=== PATIENT | male | born 1955 | race Caucasian/White ===

== ENCOUNTER → 2024-10-21 15:24 | Outpatient (BNVA) | payer MEDICARE, SELFPAY | PROVIDERS: PCP Family Medicine; Visit Provider Family Medicine | DX: I10 Essential (primary) hypertension (principal); M51.9 Unspecified thoracic, thoracolumbar and lumbosacral intervertebral disc disorder; E78.5 Hyperlipidemia, unspecified; Z85.118 Personal history of other malignant neoplasm of bronchus and lung | CPT/HCPCS: 80053; 80061; 85025 ==

== ENCOUNTER 2024-10-27 08:15 | Outpatient (CLI) | payer MEDICARE, BC, SELFPAY ==
--- NOTE | 2024-10-27 08:45 | MR_ITS ---
WS: [id number] MRI LUMBAR SPINE NONCONTRAST TECHNIQUE: Sagittal T1, T2 and STIR imaging. Axial T1 and T2 imaging. CLINICAL INFORMATION: chronic back pain COMPARISON: None. FINDINGS: Anterolisthesis C3 on C4 on the cervical spine jump roll operator imaging measuring approximately 3.1 mm. Moderate central canal stenosis with slight indentation cervical cord and probably chronic myelomalacia. Juan mmend further evaluation with cervical spine MRI. Grade 1 anterolisthesis C7 on T1. No prior cervical spine imaging at [facility]. Chronic biconcave compression at L1 with loss of approximately 50% vertebral body height centrally. M ild to moderate central canal stenosis T11-T12 with small central disc protrusion and slight indentat ion on the distal thoracic cord. Anterolisthesis L5 on S1 measuring 8 mm.. L1-L2: Mild disc bulging. Mild facet arthropathy. Small LEFT foraminal protrusion with mild LEFT and no significant RIGHT foraminal narrowing. L2-L3: Mild disc bulge with mild central canal stenosis. Mild facet arthropathy. Mild LEFT foraminal narrowing. L3-L4: Shallow central disc protrusion. Moderate central canal stenosis. Moderate facet arthropathy w ith ligamentum flavum hypertrophy. Bilateral foraminal protrusions with moderate foraminal narrowing. L4-L5: Moderate central canal stenosis with mild disc bulging and facet arthropathy ligamentum flavum hypertrophy. Mild to moderate LEFT greater than RIGHT foraminal narrowing. L5-S1: Grade 1-2 anterolisthesis. Mild central canal stenosis. Slight impingement of traversing S1 ne rve roots. Moderate to advanced facet arthropathy with ligamentum flavum hypertrophy. Severe bilatera l foraminal narrowing. Impingement on the exiting L5 nerve roots. Small RIGHT renal cysts MR/MR lumbar spine wo con* [id number] IMPRESSION: 1. Moderate central canal stenosis in the cervical spine on the jump roll operator imaging at C3-4 with grade 1 anterolisthesis. Recommend further evaluation with cervica l spine MRI. Slight indentation of the cervical cord with myelomalacia. 8 mm an terolisthesis L5 on S1 with severe bilateral foraminal narrowing. 2. Chronic biconcave compression L1 vertebral body with loss of approximately 50% vertebral body height. 3. Moderate central canal stenosis L3-L4 and L4-L5. 4. Small central protrusion T11-T12 with mild to moderate central canal stenos is. 5. Mild to moderate foraminal narrowing worse at bilateral L3-4 and bilateral L4-5.
== END 2024-10-27 08:16 | disposition home or self-care (01) ==
LOC: RAD 08:18
PROVIDERS: PCP Family Medicine; Visit Provider Family Medicine
DX: M51.9 Unspecified thoracic, thoracolumbar and lumbosacral intervertebral disc disorder (principal); M48.02 Spinal stenosis, cervical region; M48.07 Spinal stenosis, lumbosacral region; M48.061 Spinal stenosis, lumbar region without neurogenic claudication; M48.04 Spinal stenosis, thoracic region; M43.13 Spondylolisthesis, cervicothoracic region; M43.12 Spondylolisthesis, cervical region; M43.17 Spondylolisthesis, lumbosacral region; R93.89 Abnormal findings on diagnostic imaging of other specified body structures; M51.369 Other intervertebral disc degeneration, lumbar region without mention of lumbar back pain or lower extremity pain; M47.816 Spondylosis without myelopathy or radiculopathy, lumbar region; M47.817 Spondylosis without myelopathy or radiculopathy, lumbosacral region; N28.1 Cyst of kidney, acquired; M51.24 Other intervertebral disc displacement, thoracic region
CPT/HCPCS: 72148

== ENCOUNTER 2024-11-11 08:27 | Outpatient (CLI) | payer MEDICARE, BC, SELFPAY ==
--- NOTE | 2024-11-11 08:33 | CTR_ITS ---
PROCEDURE INFORMATION: Exam: CT Chest Without Contrast; Diagnostic Exam date and time: 11/11/2024 8:32 AM Age: 69 years old Clinical indication: Abnormal findings; Abnormal radiologic exam of lung or chest; Prior surgery; Surgery date: 6+ months; Surgery type: RT lung; Patient HX: HX of lung cancer; Additional info: Lung nodule. TECHNIQUE: Imaging protocol: Diagnostic computed tomography of the chest without contrast. Sagittal and coronal reformatted images were also reviewed. Interpretation is based on receipt of 227 images. Radiation optimization: All CT scans at this facility use at least one of these dose optimization techniques: automated exposure control; mA and/or kV adjustment per patient size (includes targeted exams where dose is matched to clinical indication); or iterative reconstruction. COMPARISON: No relevant prior studies available. RADIATION DOSE METRICS: Total DLP (mGy-cm): 329.87 FINDINGS: Limitations: Evaluation of the mediastinum and vasculature is limited without intravenous contrast. Trachea: Tracheobronchial structures are patent. Lungs: The patient has had a previous right upper lobectomy. Ill-defined soft tissue density in the right perihilar region with marked narrowing of the right middle lobe bronchus and complete obstruction of the right lower lobe bronchus prior to its branches (series 3, images 36-41 and series 6, images 30-36). This measures approximately 6.5 x 2.4 cm (series 3, image 37). Dense opacification in the right lower lobe may be due to postobstructive atelectasis/pneumonia. However, there are also cylindrical bronchiectatic changes in this region and the density could be due at least in part to post radiation changes. Reticulonodular interstitial thickening surrounding the more dense area of opacification could represent an atypical pneumonia versus lymphangitic spread of tumor. The left lung is clear. Pleural spaces: Small right pleural effusion. No pneumothorax. Heart: Mild enlargement of the heart. Coronary arteries: Extensive atherosclerotic calcification in the coronary arteries. Esophagus: The esophagus is unremarkable. Mediastinal space: No mediastinal hematoma. No pneumomediastinum. Lymph nodes: Multiple enlarged mediastinal lymph nodes. The largest measures 1.3 cm in short axis (series 3, image 26). Vasculature: Moderate atherosclerotic changes in the visualized arteries. No evidence for aortic aneurysm. Pulmonary arteries are unremarkable. Pulmonary veins are unremarkable. Liver: The visualized liver is unremarkable. Gallbladder and biliary ducts: The visualized gallbladder is unremarkable. Pancreas: The visualized pancreas is unremarkable. No pancreatic ductal dilatation. Spleen: The spleen is unremarkable. Adrenal glands: The right and left adrenal glands are unremarkable. Kidneys: Small cysts in the visualized right kidney, the larger measures 1.6 cm. The visualized left kidney is unremarkable. Bones/joints: Old, severe compression deformity of L1. Degenerative changes in the spine and shoulders. No lytic or sclerotic bony lesions. Soft tissues: No acute abnormality in the extrathoracic soft tissues. CT/CT chest wo con [id number] IMPRESSION: 1. Ill-defined soft tissue density in the right perihilar region with marked narrowing of the right middle lobe bronchus and complete obstruction of the right lower lobe bronchus prior to its branches. This measures approximately 6.5 x 2.4 cm. Dense opacification in the right lower lobe may be due to postobstructive atelectasis/pneumonia. However, there are also cylindrical bronchiectatic changes in this region and the density could be due at least in part to post radiation changes. 2. Reticulonodular interstitial thickening surrounding the more dense area of opacification could represent an atypical pneumonia versus lymphangitic spread of tumor. 3. Small right pleural effusion. 4. Old, severe compression deformity of L1. 5. Mediastinal lymphadenopathy, possible metastatic foci cannot be ruled out. 6. The patient has had a previous right upper lobectomy. 7. Incidental/nonacute findings are listed in the report.
== END 2024-11-11 08:28 | disposition home or self-care (01) ==
LOC: RAD 08:27
PROVIDERS: PCP Family Medicine; Visit Provider Family Medicine
DX: M54.2 Cervicalgia (principal); M54.6 Pain in thoracic spine; M54.50 Low back pain, unspecified; Z85.118 Personal history of other malignant neoplasm of bronchus and lung; M48.02 Spinal stenosis, cervical region; M47.896 Other spondylosis, lumbar region; M51.9 Unspecified thoracic, thoracolumbar and lumbosacral intervertebral disc disorder
CPT/HCPCS: 71250; 72050; 72072; 72110; 85025; 99204

== ENCOUNTER 2024-11-14 09:56 | Outpatient (CLI) | payer MEDICARE, BC, SELFPAY ==
--- NOTE | 2024-11-14 10:15 | MR_ITS ---
WS: [id number] MRI CERVICAL SPINE NONCONTRAST TECHNIQUE: Sagittal T1, T2 and STIR imaging. Axial T2, gradient, and fiesta imaging. CLINICAL INFORMATION: Neck Pain COMPARISON: None. FINDINGS: Straightening of the normal cervical lordosis. Grade 1 anterolisthesis C3 on C4 and C7 on T1. Chronic myelomalacia in the cervical cord at the C3 level with severe central canal stenosis. Spinal canal a t this level measures approximately 3.8 mm in maximum dimension. C2-C3: Mild facet arthropathy. Spinal canal and foramen are patent. C3-C4: Grade 1 anterolisthesis. Mild disc bulging with severe central canal stenosis. Impingement wit h flattening of the cervical cord. Myelomalacia in the cervical cord. Severe LEFT and moderate to sev ere RIGHT bony foraminal narrowing. Advanced LEFT facet arthropathy. C4-C5: Slight retrolisthesis. Disc osteophyte complex with moderate to severe facet arthropathy. Conchita re LEFT and mild RIGHT bony foraminal narrowing. Uncovertebral joint hypertrophy. Mild central canal stenosis. C5-C6: Disc osteophyte complex with endplate ridging. Severe RIGHT and mild LEFT bony foraminal narro wing. Moderate to advanced facet arthropathy. C6-C7: Disc osteophyte complex with moderate central canal stenosis and slight contact of the cervica l cord. Moderate to severe LEFT greater than RIGHT bony foraminal narrowing. Moderate facet arthropat hy. C7-T1: Grade 1 anterolisthesis. Mild disc bulging with mild central canal stenosis. Severe LEFT and m ild RIGHT bony foraminal narrowing. Moderate facet arthropathy. Visualized brain stem structures: Normal. Prevertebral soft tissues: Normal. Small vessel changes in the paul. MR/MR cervical spin wo con* [id number] IMPRESSION: 1. Straightening of the normal cervical lordosis. Grade 1 anterolisthesis C3 o n C4 and C7 on T1. 2. Severe central canal stenosis C3-C4 with indentation and flattening of the cervical cord. Chronic myelomalacia in the cervical cord at this level. 3. Mild central canal stenosis C4-5 and C5-6. Moderate central canal stenosis C6-7. 4. Multilevel moderate to severe bony foraminal narrowing worse at LEFT C3-4, LEFT C4-5, RIGHT C5-6, LEFT C6-7, and LEFT C7-T1.
== END 2024-11-14 09:57 | disposition home or self-care (01) ==
LOC: RAD 09:57
PROVIDERS: PCP Family Medicine; Visit Provider Orthopaedic Surgery
DX: M43.12 Spondylolisthesis, cervical region (principal); M43.13 Spondylolisthesis, cervicothoracic region; M48.02 Spinal stenosis, cervical region; G95.89 Other specified diseases of spinal cord; M48.03 Spinal stenosis, cervicothoracic region; M47.892 Other spondylosis, cervical region; M50.31 Other cervical disc degeneration, high cervical region; M25.78 Osteophyte, vertebrae; R93.89 Abnormal findings on diagnostic imaging of other specified body structures; M50.33 Other cervical disc degeneration, cervicothoracic region; M47.893 Other spondylosis, cervicothoracic region
CPT/HCPCS: 72141

== ENCOUNTER → 2024-11-27 10:16 | Outpatient (BNVA) | payer MEDICARE, BC, SELFPAY | PROVIDERS: PCP Family Medicine; Visit Provider Orthopaedic Surgery | DX: M47.12 Other spondylosis with myelopathy, cervical region (principal) | CPT/HCPCS: 36415; 80053; 81001; 85025; 99214 ==

== ENCOUNTER → 2024-12-12 12:04 | Outpatient (BNVA) | payer MEDICARE, BC, SELFPAY | PROVIDERS: PCP Family Medicine; Visit Provider Family Medicine | DX: Z01.818 Encounter for other preprocedural examination (principal) | CPT/HCPCS: 93005 ==

== ENCOUNTER 2024-12-31 13:05 | Observation (INO) | payer MEDICARE, BC, SELFPAY ==
[2024-12-31] VITALS (20 sets, daily range): BP systolic 85–151; BP diastolic 50–85; PULSE 63–94; RESP 14–20; TEMP 36–36.8; O2SAT 91–99; BMI 24.3; BMI 24.4
--- NOTE | 2024-12-31 | XR_ITS ---
WS: [id number] Cervical spine, C-arm fluoroscopy views, 12/31/2024 Clinical Data: OR PICS Comparison: Cervical spine, 11/11/2024 Findings: Dr. Montengero performed an anterior cervical disc fusion. XR/XR cervical spine 3V* [id number] Impression: Anterior cervical disc fusion.
[2024-12-31] MEDS: sodium chloride 0.9% 1,000 ML 30 ML IV (08:36)
[2024-12-31] MEDS: albuterol 2.5 mg/3 mL Neb INHALATION (08:55)
--- NOTE | 2024-12-31 08:57 | P.HP_ITS ---
Same Day Surgery H&P Indication for Procedure/HPI DATE OF PROCEDURE: December 31, 2024 CHIEF COMPLAINT/INDICATIONFOR SURGICAL PROCEDURE: Neck pain and balance issues PREOP DIAGNOSIS: Cervical stenosis with myelopathy PLANNED PROCEDURE: Operation Date: 12/31/24 09:25 Proposed Procedures p Anterior Cervical Discectomy & Fusion ACDF w/ Anterior Interbody Fusion w/ Cage w/ Instrumentation w/ Allograft w/ Navigation(Not Applicable) - Soto Montenegro DO Medications/Allergies* Home Medications ?Medication ?Instructions ?Recorded ?Confirmed ?Type aspirin 81 mg tablet,delayed 81 mg PO DAILY 10/21/24 0 12/30/24 History release (Adult Aspirin Regimen) Allergies/Adverse Reactions Allergy/AdvReac Type Severity Reaction Status Date / Time No Known Allergies Allergy Verified 12/12/24 12:18 Current Medications: Generic Name Dose Route Start Last Admin Trade Name Freq PRN Reason Stop Dose Admin Sodium Chloride 1,000 mls @ 30 mls/hr 12/31/24 07:45 12/31/24 08:36 Sodium Chloride 0.9% IV 01/01/25 07:44 30 mls/hr .Q24H HALIE Administration Pertinent History/Comorbid Conditions* Medical History (Updated 11/11/24 @ 15:40 by Soto Montenegro DO) Hx of cancer of lung Hypertension Hyperlipidemia Lumbar disc disease Social History Smoking and tobacco/nicotine status: current every day tobacco/nicotine user Pertinent Exam Findings alert, oriented x 3 and procedure specific exam findings Recommendations Surgery/Procedure today Coding Level of Care Code Acute Code for Chg Fwd
--- NOTE | 2024-12-31 08:57 | ANES.PREANE2 ---
Pre-Anesthetic Assessment Height/Weight: Height 1.75 m Weight 74.843 kg Temp Pulse Resp BP Pulse Ox O2 Del Method 97.1 F L 68 18 100/57 97 Room Air 12/31/24 07:56 12/31/24 07:56 12/31/24 07:56 12/31/24 07:56 12/31/24 07:56 12/31/24 08:37 Preop Diagnosis: Cervical stenosis with myelopathy Operation Date: 12/31/24 09:25 Proposed Procedures p Anterior Cervical Discectomy & Fusion ACDF w/ Anterior Interbody Fusion w/ Cage w/ Instrumentation w/ Allograft w/ Navigation(Not Applicable) - Soto Montenegro, DO Familial anesthetic complications: None Was Beta Payam taken within 24 hours: N/A Was Clonidine taken within 24 hours: N/A Last intake: Intake Last Liquid Date 12/30/24 Last Liquid Time 21:00 Last Solid Date 12/30/24 Last Solid Time 18:00 Social Tobacco and No alcohol Exam alert, oriented x 3, clear to auscultation bilaterally and regular rate & rhythm Airway Mallampati: Class II Dentition: other (no teeth) CV/HEM Hypertension Anesthetic Plan ASA status: 2 Anesthesia: General Risk of > 500 ml blood loss (7ml/kg in children): No Medications/Allergies Home Medications ?Medication ?Instructions ?Recorded ?Confirmed ?Last Taken ?Type aspirin 81 mg tablet,delayed 81 mg PO DAILY 10/21/24 12/30/24 12/29/24 History release (Adult Aspirin Regimen) carvedilol 3.125 mg tablet 3.125 mg PO DAILY #90 tabs 10/21/24 12/30/24 12/29/24 Rx lisinopril 40 mg tablet 40 mg PO DAILY #90 tabs 10/21/24 12/30/24 12/29/24 Rx rosuvastatin 5 mg tablet 5 mg PO DAILY #90 tabs 10/21/24 12/30/24 12/29/24 Rx Bone Growth Stimulator #1 ea 12/16/24 Unknown Rx Allergies Allergy/AdvReac Type Severity Reaction Status Date / Time No Known Allergies Allergy Verified 12/12/24 12:18 Current Medications Generic Name Dose Route Start Last Admin Trade Name Freq PRN Reason Stop Dose Admin Sodium Chloride 1,000 mls @ 30 mls/hr 12/31/24 07:45 12/31/24 08:36 Sodium Chloride 0.9% IV 01/01/25 07:44 30 mls/hr .Q24H HALIE Administration PFSH Anesthesia Medical History Hx of cancer of lung Hypertension Hyperlipidemia Lumbar disc disease Social History Smoking and tobacco/nicotine status: current every day tobacco/nicotine user Data Anesthesia Cardiac Studies: No Data to Display
[2024-12-31] MEDS: ceFAZolin 2,000 mg SDV 2000 MG IVP ×2 (09:39→16:58)
[2024-12-31] MEDS: lidocaine-epi 1% 20 mL INJ 10 ML INJECTION (10:32)
--- NOTE | 2024-12-31 11:33 | PM.OP ---
Operative Report Date of procedure: December 31, 2024 Pre-op diagnosis: Cervical stenosis with myelopathy Post-op diagnosis: same Procedure done: 1. Anterior diskectomy C 3/4 2. Insertion of cage C 3/4 3. Instrumentation with anterior plate from C 3?4 4. Use of allograft Surgeon: Soto Montenegro DO Estimated blood loss (mL): 50 Procedure: 1. Anterior diskectomy C 3/4 2. Insertion of cage C 3/4 3. Instrumentation with anterior plate from C 3?4 4. Use of allograft The patient was taken to the operating room, where he underwent general endotracheal anesthesia without complications. He was then positioned supine on the operating table, and all areas of impingement were well padded. The arms were carefully padded and tucked at his sides. A roll was placed between the shoulder blades.. An x-ray was done to determine the appropriate level for the skin incision. The entire neck was then sterilely prepped and draped in the usual fashion. Neuromonitoring was attached prior to prepping. A transverse skin incision was made and carried down to the platysma muscle. This was then split in line with its fibers. Blunt dissection was carried down medial to the carotid sheath and lateral to the trachea and esophagus until the anterior cervical spine was visualized. A needle was placed into a disc and an x-ray was done to determine its location. The longus colli muscles were then elevated bilaterally with the electrocautery unit. Self-retaining retractors were placed deep to the longus colli muscle. Attention was brought to the C3/4 level that was confirmed on x-ray. A caspar pin was placed into the C3 vertebrae and the C4 vertebrae. The disk space was then distracted. The microscope was then brought in. A radical anterior discectomies were performed at C3/4. This included complete removal of the anterior annulus, nucleus, and posterior annulus. The posterior longitudinal ligament was removed as were the posterior osteophytes. Foraminotomies were then accomplished bilaterally. This was done using a high speed sal, kerrison rongeurs and curretes Once all of this was accomplished, the curved currette was used to check for any residual compression. The central canal was wide open as were the foramen. A high-speed bur was used to remove the cartilaginous endplates above and below the interspace. Bleeding cancellous bone was exposed. The disc space were measured and appropriate size cage were placed sterilely onto the field. Allograft graft was packed into the cages. The cage was then placed and there was good juxtaposition against the bleeding decorticated surfaces and good distraction of each interspace. The [place] pins were removed. Bone wax was used to prevent any bleeding from occurring at the pin sites. The appropriate size anterior cervical locking plate was chosen and bent into gentle lordosis. Two screws were then placed into each of the vertebral bodies at C3 and C4. There was excellent purchase. A final x-ray was done confirming good position of the hardware and Cages. The locking screws were then applied, also with excellent purchase. Following a final copious irrigation, there was good hemostasis and no dural leaks. The carotid pulse was strong. The wounds were then closed in layers using 2-0 Vicryl suture for the platysma muscle, 2-0 Vicryl suture for the subcutaneous tissue, and 4-0 monocryl suture in a subcuticular skin closure. Glue was placed followed by application of a sterile dressing. The drain was hooked to bulb suction. A soft collar was applied. The patient was then carefully returned to the supine position on his hospital bed where he was reversed and extubated and taken to the recovery room having tolerated the procedure well.
--- NOTE | 2024-12-31 13:14 | SUR.PHASEII ---
12:15 WARM BLANKETS APPLIED. TOLERATED PO FLUIDS WELL. ROM AND SENSATION IN ALL EXTREMITES. HEMOVAC PATENT.
--- NOTE | 2024-12-31 13:50 | ANE.PACU2 ---
Inpatient post-anesthesia follow up: Airway intact: Yes Vital signs: Temperature 97.7 F Pulse Rate 64 Respiratory Rate 13 Blood Pressure 135/68 Pulse Oximetry 95 Oxygen Delivery Me thod Room Air Oxygen Flow Rate 2 Fraction of Inspir ed Oxygen Hydration adequate: Yes Nausea and vomiting: No Pain level: 1 Mental status: Baseline
[2024-12-31] MEDS: lactated ringers 1,000 ML 90 ML IV (14:54)
[2024-12-31] MEDS: ketorolac 30 mg/mL INJ IVP (14:58)
[2024-12-31] MEDS: docusate sodium 100 mg Capsule PO (17:03)
[2024-12-31] MEDS: HYDROcodone-acetaminophen 5-325 mg Tablet PO (20:19)
[2025-01-01] MEDS: ceFAZolin 2,000 mg SDV 2000 MG IVP ×2 (00:11→08:05)
[2025-01-01] MEDS: lactated ringers 1,000 ML 90 ML IV (01:51)
[2025-01-01 04:18] VITALS: BP 135/68; PULSE 64; RESP 13; TEMP 36.5; O2SAT 95
--- NOTE | 2025-01-01 07:32 | P.DS_ITS ---
Discharge Providers Date of Admission: 12/31/24 13:05 Date of Discharge: January 01, 2025 Attending Provider at Admission: Soto Montenegro DO Attending Provider at Discharge: Soto Montenegro DO Primary Care Provider: Rhett Cuevas MD Reason for Visit Reason for Visit: M47.12 Physical Exam Narrative: Patient doing well sitting up no complaints this morning. 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 Discharge Data Studies Completed and Pending Pending at discharge Category Date Time Status C-arm Fluoroscopy [id number] Routine Exams 12/31/24 07:39 Taken Vitals Last Vital Signs Temp 97.7 F 01/01/25 04:18 Pulse 64 01/01/25 04:18 Resp 13 01/01/25 04:18 BP 135/68 01/01/25 04:18 Pulse Ox 95 01/01/25 04:18 O2 Del Method Room Air 01/01/25 04:18 O2 Flow Rate 2 12/31/24 20:15 Discharge Plan Discharge Patient Disposition: Home Condition: Stable Prescriptions: New hydrocodone-acetaminophen 5-325 mg tablet 1 - 2 tab PO .Q4-6H Qty: 40 0RF Continued carvedilol 3.125 mg tablet 3.125 mg PO DAILY Qty: 90 3RF lisinopril 40 mg tablet 40 mg PO DAILY Qty: 90 3RF rosuvastatin 5 mg tablet 5 mg PO DAILY Qty: 90 3RF Held aspirin [Adult Aspirin Regimen] 81 mg tablet,delayed release (DR/EC) 81 mg PO DAILY Hold Instructions: Resume on 01/03/25. Discharge Orders: Discharge Order (Routine); Ordered 01/01/25 Ordered By: Soto Montenegro Discharge Diet: Advance as tolerated Discharge Activity: Limit activity as instructed Patient Instructions: Acute Wound Care (DC), Opioid Safety, Post Anesthesia Care Activity Restrictions/Additional Instructions: Thank you for choosing [facility] for your care! The following is a list of instructions, from your provider, to follow upon your discharge to ensure you have the optimal recovery from your recent injury or surgery. Anterior Cervical Discectomy and Fusion: What to Expect at Home Your Recovery Follow-up care is a mora part of your treatment and safety. Be sure to make and go to all appointments, and call your doctor if you are having problems. If you do not already have a follow-up appointment made, call office in the next 1-3 days to make follow up appointment for 2 weeks at [phone]. It is also a good idea to know your test results and keep a list of the medicines you take. You can expect your neck to feel stiff or sore after surgery. This should improve in the weeks after surgery. But it may take 4 to 6 months for you to get better completely. You may have trouble sitting or standing in one position for very long and may need pain medicine in the weeks after your surgery. It may take 4 to 6 weeks to get back to your usual activities, but it may depend on what kind of surgery you had. Your throat will feel sore and it may be difficult to swallow for the first 3 days after your surgery. As long as you can get liquids down without difficulty, this should slowly improve, otherwise call our office or seek medical attention if it becomes increasingly difficult to get anything down including liquids. Avoid hot liquids for first 3-5 days. Soothing foods/liquids such as jello, pudding, and luke warm soups are recommended until swallowing improves. Staying elevated will also help, it's advised you keep propped up at while sleeping to help reduce the swelling. You may use an ice pack directly on your incision or around it on the front of your neck, using a cloth to protect your skin; and a heating pad to the back of your neck as needed. Do not use over the counter anti-inflammatory medications (Ibuprofen, Motrin, Aleve, Advil, etc) Taking these meds after having a fusion can delay fusion rates, we recommend you avoid them for the first 3 months after your surgery. Dr. Montenegro may advise you to work with a physical therapist to strengthen the muscles around your neck and back - this will be discussed at your follow - up appointments. The pain or numbness you were having in your arms before surgery should get better or go away completely. This care sheet gives you a general idea about how long it will take for you to recover. But each person recovers at a different pace. Follow the steps below to get better as quickly as possible. How can you care for yourself at home? Activity ? Rest when you feel tired. Getting enough sleep will help you recover. ? Try to walk each day. Start by walking a little more than you did the day before. Bit by bit, increase the amount you walk. Walking boosts blood flow and helps prevent pneumonia and constipation. Walking may also decrease your muscle soreness after surgery. ? No lifting anything that is more that 5 pounds. This may include heavy grocery bags and milk containers, a heavy briefcase or backpack, cat litter or dog food bags, a child, or a vacuum block cleaner. ? Avoid strenuous activities, such as bicycle riding, jogging, weightlifting, or aerobic exercise, until your doctor says it is okay. ? Do not drive until your follow-up visit after your surgery, or until your doctor says it isokay. ? Avoid taking long car trips for 2 to 4 weeks after surgery. Your neck may become tired and painful from sitting too long in one position. ? You will probably need to take 4 to 6 weeks off from work. It depends on the type of work you do and how you feel. ? You may have sex as soon as you feel able, but avoid positions that put stress on your neck or cause pain. Diet ? You can eat your normal diet. If your stomach is upset, try bland, low-fat foods like plain rice, broiled chicken, toast, and yogurt ? Drink plenty of fluids. If you have kidney, heart, or liver disease and have to limit fluids, talk with your doctor before you increase the amount of fluids you drink. ? You may notice that your bowel movements are not regular right after your surgery. This is common. Try to avoid constipation and straining with bowel movements. You may want to take a fiber supplement every day. If you have not had a bowel movement after a couple of days, ask your doctor about taking a mild laxative. Medicines ? Take pain medicines exactly as directed. 1. If Dr. Montenegro gave you a prescription medicine for pain, take lt as prescribed. 2. Do not take two or more pain medicines at the same time unless the doctor told you to. Many pain medicines have acetaminophen, which is Tylenol. Too much acetaminophen {Tylenol) can be harmful. 3. If you think your pain pill is making you sick to your stomach: 4. Take your pills after meals (unless your doctor has told you not to). 5. Ask your Dr. for a different pain pill. Incisioncare ? Remove your dressing 48hours after your surgery. Ok to shower and get the incision wet. Do not overtly wash your incision. When done, pad dry, leave open to air thereafter. Avoid creams and ointments directly on your incision. ? Your sutures in the incision will dissolve and fall out on their own. ? Keep the area clean and dry. You may cover it with a gauze bandage if it weeps or rubs against clothing; if you choose to do this, change the dressing everyday. Other instructions ? Use a heating pad, hot water bottle, or gentle massage on your back to reduce stiffness. Avoid putting heat on your incision When should you call for help? ? Call 911 anytime you think you may need emergency care. For example, call if: ? You pass out (lose consciousness). ? You have sudden chest pain and shortness of breath, or you cough upblood. ? You cannot swallow. ? You have severe pain in your neck or back. ? Call your Dr. or seek immediate medical care if: ? You have pain that does not get better after you take pain pills. ? You have loose stitches, or your incision comes open. ? You have blood or fluid draining from the incision. ? You have signs of infection, such as: 1. Increased pain, swelling, warmth, or redness. 2. Red streaks leading from the site. 3. Pus draining from the site. 4. Swollen lymph nodes in your neck or armpits. 5. A fever. ? You have severe pain in your arms. ? You have new or increased weakness or numbness in your arms. ? Watch closely for any changes in your health, and be sure to contact your doctor if: ? You do not have a bowel movement after taking a laxative. Discharge Attestations Time Spent in Discharge Care*: less than 30 min Quality Metrics Clinical Quality Measures [ No reported AMI, CVA or VTE this stay] Coding Level of Care Code Acute Code for Chg Fwd
[2025-01-01 07:40] VITALS: BP 130/72; PULSE 63; RESP 16; TEMP 36.4; O2SAT 92
[2025-01-01] MEDS: atorvastatin 40 mg Tablet 20 MG PO (08:15)
[2025-01-01] MEDS: docusate sodium 100 mg Capsule PO (08:16)
[2025-01-01] MEDS: carvedilol 3.125 mg Tablet PO (08:16)
[2025-01-01] MEDS: lisinopril 20 mg Tablet 40 MG PO (08:16)
[2025-01-01 10:05] VITALS: BP 130/72; PULSE 63; RESP 16; TEMP 36.4; O2SAT 92
== END 2025-01-01 09:59 | disposition home or self-care (01) ==
LOC: MEDSURG 13:05
PROVIDERS: Admitting Provider Orthopaedic Surgery; PCP Family Medicine; Visit Provider Orthopaedic Surgery
PROC: 0RB30ZZ Excision of Cervical Vertebral Disc, Open Approach (ICD-10-PCS; CPT 22551; principal; 2024-12-31 09:25)
DX: M48.02 Spinal stenosis, cervical region (principal); G99.2 Myelopathy in diseases classified elsewhere; E78.5 Hyperlipidemia, unspecified; I10 Essential (primary) hypertension; K08.109 Complete loss of teeth, unspecified cause, unspecified class; Z79.82 Long term (current) use of aspirin; F17.200 Nicotine dependence, unspecified, uncomplicated; Z85.118 Personal history of other malignant neoplasm of bronchus and lung; Z79.899 Other long term (current) drug therapy
CPT/HCPCS: 22551; 22853; 20930; 72040; 76000; 97110; 97161; C1713; C1763; C9359; G0378; J0690; J1100; J1885; J2250; J2405; J2704; J3010; J3490; J7030; J7120; J7613

== ENCOUNTER → 2025-01-20 14:43 | Outpatient (BNVA) | payer MEDICARE, BC, SELFPAY | PROVIDERS: PCP Family Medicine; Visit Provider Orthopaedic Surgery | DX: M48.02 Spinal stenosis, cervical region (principal) | CPT/HCPCS: 99024 ==

== ENCOUNTER → 2025-02-10 08:41 | Outpatient (BNVA) | payer MEDICARE, BC, SELFPAY | PROVIDERS: PCP Family Medicine; Visit Provider Orthopaedic Surgery | DX: M48.02 Spinal stenosis, cervical region (principal); M47.12 Other spondylosis with myelopathy, cervical region | CPT/HCPCS: 72040; 99024 ==

== ENCOUNTER → 2025-03-17 14:27 | Outpatient (BNVA) | payer MEDICARE, BC, SELFPAY | PROVIDERS: PCP Family Medicine; Visit Provider Orthopaedic Surgery | DX: M51.9 Unspecified thoracic, thoracolumbar and lumbosacral intervertebral disc disorder (principal); M47.12 Other spondylosis with myelopathy, cervical region | CPT/HCPCS: 72040; 99024 ==

== ENCOUNTER 2025-03-20 12:02 | Outpatient (CLI) | payer MEDICARE, BC, SELFPAY ==
--- NOTE | 2025-03-20 12:30 | PETR_ITS ---
PROCEDURE INFORMATION: Exam: PET/CT Skull Base to Mid-thigh Exam date and time: 03/20/2025 1:13 PM Age: 69 years old Clinical indication: Condition or disease; Primary cancer: Lung cancer; Condition/disease: New lung nodule; Prior surgery; Surgery date: 6+ months; Surgery type: RT lung; Additional info: Follow up on lung cancer - new mass LABS AND CLINICAL REPORTS: Glucose: 98 mg/dl Treatment strategy for malignancy (PET staging): Restaging (PS) TECHNIQUE: Imaging protocol: Following at least four-hour fasting and following the injection of radiopharmaceutical, low dose CT images were obtained. Then, PET images were obtained. Attenuation corrected images were constructed using the CT scan. Fused images of PET and CT were reviewed. The standardized uptake values (SUV) reported below are maximum values within a region of interest, expressed in gm/ml. Exam includes orbital meatal line to mid-thigh. SUV normalization method: BodyWeight Radiopharmaceutical: 10.6 mCi F-18 FDG (Fluorodeoxyglucose), IV. Time of imaging post radiopharmaceutical administration: 53 minutes Injection site: right ac COMPARISON: CT chest wo con [id number] 11/11/2024 8:32 AM FINDINGS: Brain: Visualized brain has normal physiologic uptake. Paranasal sinuses: Largely opacified left maxillary sinus with low-level FDG uptake. Pharynx: No abnormal uptake. Larynx: No abnormal uptake. Lungs, pleura and trachea: Prior right upper lobectomy changes. Heterogeneous right lower lobe consolidation and ground-glass opacification with FDG avid masslike perihilar area measuring approximately 4.5 x 3.0 cm on axial image 117 showing SUV max 18.3 and more peripheral masslike area measuring approximately 4.0 x 3.7 cm on axial image 125 showing SUV max 20.6. Mild right middle lobe ground-glass opacification with prominently very low-level FDG uptake, more avid (mild) focus showing SUV max 3.4 on axial image 121. Subcentimeter left upper lobe nodule on axial image 102 shows SUV max 7.9, accurate size measurement difficult given motion artifact. Mild ground-glass opacity at the left lung base with low-level FDG uptake is likely inflammatory. Small right pleural effusion. Heart: Normal physiologic uptake. Coronary arteries: Heavy coronary artery calcification. Mediastinal space: No abnormal uptake. Liver: No abnormal uptake. Gallbladder and biliary ducts: No abnormal uptake. Pancreas: No abnormal uptake. Spleen: No abnormal uptake. Adrenal glands: No abnormal uptake. Kidneys and ureters: Normal physiologic uptake. Stomach and bowel: No abnormal uptake. Reproductive: Bilateral vasectomy clips. Vasculature: No abnormal uptake. Heavy systemic atherosclerotic calcification without aortic aneurysm. Lymph nodes: FDG avid mediastinal and presumed right hilar lymphadenopathy with index right peribronchial node (medial to right bronchus) measuring 1.9 cm in the short axis on axial image 113 showing SUV max 10.7, previously measured 0.7 cm in the short axis. Skeleton: No abnormal uptake in the visualized axial and appendicular skeleton. Stable severe compression deformity of the L1 vertebral body. Mild chronic appearing compression deformity of the L3 vertebral body. Degenerative change along the axial skeletal system and both shoulders. Grade 2 degenerative anterolisthesis of L5 on S1. C3-C4 ACDF. Bilateral total hip arthroplasties. Soft tissues: No abnormal uptake in the visualized head, neck, chest, abdomen, pelvis, and extremities. METRICS: Mediastinal blood pool: SUV mean 1.6 Liver uptake: SUV mean 2.0 PET/PET skull to thigh SUBS [id number] IMPRESSION: 1. Heterogeneous right lower lobe consolidation and ground-glass opacification with FDG avid masslike perihilar area and more peripheral FDG avid masslike area suspicious for malignancy. 2. FDG avid mediastinal and presumed right hilar lymphadenopathy suspicious for metastatic disease. 3. Likely inflammatory ground-glass opacification at the right middle lobe, cannot entirely exclude malignancy at more focal area of mild FDG uptake. 4. FDG avid subcentimeter left upper lobe nodule raises concern for malignancy. 5. Small right pleural effusion. 6. Inflammatory left maxillary sinus disease. 7. Additional chronic and incidental findings as above.
== END 2025-03-20 12:03 | disposition home or self-care (01) ==
PROVIDERS: PCP Family Medicine; Visit Provider Family Medicine
DX: C34.00 Malignant neoplasm of unspecified main bronchus (principal); Z85.118 Personal history of other malignant neoplasm of bronchus and lung; R91.8 Other nonspecific abnormal finding of lung field; R59.0 Localized enlarged lymph nodes; J90 Pleural effusion, not elsewhere classified; J34.89 Other specified disorders of nose and nasal sinuses; Z98.890 Other specified postprocedural states; I25.10 Atherosclerotic heart disease of native coronary artery without angina pectoris; S32.010D Wedge compression fracture of first lumbar vertebra, subsequent encounter for fracture with routine healing; S32.030D Wedge compression fracture of third lumbar vertebra, subsequent encounter for fracture with routine healing; X58.XXXD Exposure to other specified factors, subsequent encounter; M47.9 Spondylosis, unspecified; M19.012 Primary osteoarthritis, left shoulder; M19.011 Primary osteoarthritis, right shoulder; M43.17 Spondylolisthesis, lumbosacral region; Z98.1 Arthrodesis status; Z96.643 Presence of artificial hip joint, bilateral
CPT/HCPCS: 78815; A9552

== ENCOUNTER 2025-03-23 13:17 | Outpatient (CLI) | payer MEDICARE, BC, SELFPAY ==
--- NOTE | 2025-03-23 13:45 | MR_ITS ---
WS: [id number] MRI THORACIC SPINE noncontrast HISTORY: thoracic pain COMPARISON: None available. TECHNIQUE: Multiplanar sequences are performed in sagittal and axial planes. On the sash assembler radiograph there is anterior cervical fusion at C3-4 with an interbody spacer. Additional facet joint arthropathy at C7 encroaching posteriorly. Mild anterior wedging of T12. No fracture or marrow edema within the thoracic spine. H shaped fracture at L1 without retropulsion. There is an ad ditional anterior compression fracture at L3 without retropulsion. Note is made of a small amount of marrow edema in the T12 spinous process. T1-2: Facet joint arthropathy. RIGHT foraminal nerve root sleeve diverticulum. T2-3: Small bilateral nerve root sleeve diverticula. Bilateral facet arthritis and foraminal narrowing. T3-4: Mild facet arthritis. T4-5: Moderate LEFT nerve root sleeve diverticulum. Mild facet arthritis. T5-6: Small central disc protrusion. Bilateral nerve root sleeve diverticula. T6-7: LEFT nerve root sleeve diverticulum. Mild facet arthritis. T7-8: Bilateral nerve root sleeve diverticulum. No stenosis. T8-9: Mild facet arthritis. T9-10: Mild bilateral facet arthritis and foraminal stenosis. T10-11: Diffuse annular disc bulging with moderate facet joint arthropathy. Mild bilateral foraminal stenosis. T11-12: Osteophytic ridging with disc bulging. Marked ligamentum flavum and facet arthritis. Mild central with moderate bilateral foraminal stenosis, RIGHT greater than LEFT. Consolidation RIGHT lower lobe was recently described on PET/CT imaging. No destructive bone lesions. RIGHT renal cyst. MR/MR thoracic spin wo con* [id number] IMPRESSION: 1. No acute thoracic spine fracture. 2. T11-12: Mild central stenosis with moderate bilateral foraminal stenosis du e to disc and osteophyte and facet disease. Greater stenosis on the RIGHT. 3. Multilevel nerve root sleeve diverticula. 4. Multilevel facet joint arthritis as described above. 5. Prior anterior cervical fusion at C3-4 with interbody spacer. 6. Remote L1 and L3 fractures. 7. There is a small amount of marrow edema in the T12 spinous process of uncer tain etiology. This area was negative on a recent PET/CT.
== END 2025-03-23 13:18 | disposition home or self-care (01) ==
PROVIDERS: PCP Family Medicine; Visit Provider Orthopaedic Surgery
DX: M48.04 Spinal stenosis, thoracic region (principal); M25.78 Osteophyte, vertebrae; M47.894 Other spondylosis, thoracic region; R93.89 Abnormal findings on diagnostic imaging of other specified body structures; Z98.1 Arthrodesis status; S32.019A Unspecified fracture of first lumbar vertebra, initial encounter for closed fracture; S32.039A Unspecified fracture of third lumbar vertebra, initial encounter for closed fracture; X58.XXXA Exposure to other specified factors, initial encounter; M47.892 Other spondylosis, cervical region; M51.24 Other intervertebral disc displacement, thoracic region; M51.34 Other intervertebral disc degeneration, thoracic region; M24.28 Disorder of ligament, vertebrae; R91.8 Other nonspecific abnormal finding of lung field; N28.1 Cyst of kidney, acquired
CPT/HCPCS: 72146

== ENCOUNTER 2025-05-07 05:46 | Day surgery (SDC) | payer MEDICARE, BC, SELFPAY ==
[2025-05-07] VITALS (19 sets, daily range): BP systolic 99–140; BP diastolic 51–72; PULSE 64–88; RESP 14–19; TEMP 36.1–36.2; O2SAT 89–95; BMI 24.3
--- NOTE | 2025-05-07 06:16 | P.ANESASSM_ITS ---
Pre-Anesthetic Assessment Height/Weight: Height 5 ft 9 in Preop Diagnosis: Lung mass Operation Date: 05/07/25 07:00 Proposed Procedures p Bronchoscopy with Biopsy [id number] R19.8(Not Applicable) - Claudine Jain MD s Ebus(Not Applicable) - Claudine Jain MD Was Beta Payam taken within 24 hours: Yes Was Clonidine taken within 24 hours: N/A Social Tobacco and No alcohol Exam alert and oriented x 3 Wheezing throughout, no breath sounds on right upper Airway Submandibular: within normal limits Mallampati: Class III Comments: Comments: Edentulous Anesthetic Plan ASA status: 4 Anesthesia: General Other: No prior issues with anesthesia NPO since yesterday evening History of hypertension on lisinopril and carvedilol Chronic smoker, approximately [id number]-talh-lthc history Patient with lung cancer, mass in right lung. Measures 6.5 x 2.4 cm Prior lobectomy of right upper lung Wheezing throughout, plan for preop DuoNeb EKG sinus rhythm with early repolarization Labs reviewed from 05/06/2025 and acceptable for procedure Plan for general anesthesia Medications/Allergies Home Medications ?Medication ?Instructions ?Recorded ?Confirmed ?Last Taken ?Type aspirin 81 mg tablet,delayed 81 mg PO DAILY 10/21/24 0 05/07/25 05/03/25 History release (Adult Aspirin Regimen) Held on 01/01/25. Instructions: Resume on 01/03/25. carvedilol 3.125 mg tablet 3.125 mg PO DAILY #90 tabs 10/21/24 05/07/25 05/03/25 Rx lisinopril 40 mg tablet 40 mg PO DAILY #90 tabs 09/2305/07/25 05/03/25 Rx rosuvastatin 5 mg tablet 5 mg PO DAILY #90 tabs 10/2105/07/25 05/03/25 Rx Allergies Allergy/AdvReac Type Severity Reaction Status Date / Time No Known Allergies Allergy Verified 05/07/25 06:05 [facility] Anesthesia Medical History (Updated 05/06/25 @ 20:32 by Claudine Jain MD) Peripheral arterial disease Hx of cancer of lung Hypertension Hyperlipidemia Lumbar disc disease Surgical History History of knee surgery History of carpal tunnel surgery History of atherectomy both legs and stomach H/O neck surgery S/P hip replacement Social History (Updated 05/06/25 @ 10:06 by AXEL Jackson) Smoking and tobacco/nicotine status: current every day tobacco/nicotine user (1 ppd) cigarettes Packs smoked per day: 1 Years cigarettes smoked: 53 [ Other cigarette details: 2ppd when working] Alcohol intake: never Substance/Drug Use: never Household members: spouse and children Housing: House Marital status: Current occupational status: retired 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
[2025-05-07] MEDS: lidocaine 2% INJ 20 mL XX (07:31)
[2025-05-07] MEDS: EPINEPHrine 1 MG in sodium chloride 0.9% 19 ML 2 MG XX (09:20)
--- NOTE | 2025-05-07 09:25 | W.PM.BPON ---
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 Right upper lobectomy with well-healed stump. Enlarged mediastinal and hilar lymphadenopathy Interventions: Left to right EBUS staging with sampling of 11L 4L station 7, 4R, 11R and a right lower lobe mass. Transbronchial cryobiopsy of right lower lobe mass. Endobronchial biopsy of right lower lobe mass along with tumor debulking which resulted in partial recanalization and able to pass the balloon to the distal airway. Balloon dilatation of the right lower lobe and BAL of the right lower lobe. CPT codes: 43461, 22468, 10125, 92702, 83873, 52924, 35270 Complications: none Disposition: home Claudine Jain MD Interventional Pulmonary
--- NOTE | 2025-05-07 09:32 | XR_ITS ---
WS: [id number] XR chest 1V [id number] REASON FOR EXAM: Post bronch FINDINGS: No previous chest x-ray for comparison. Previous CT scan 11/11/2024 reviewed. Moderately dense airspace consolidation in the right lower lung which may have improved somewhat compared to the previous CT examination. Probable right pleural effusion. Coarse reticular interstitial lung opacities in the left lower lung. These findings are not readily identified on the previous CT scan. Unknown chronicity. XR/XR chest 1V [id number] IMPRESSION: Abnormal chest as above.
--- NOTE | 2025-05-07 10:03 | ANE.PACU2 ---
Inpatient post-anesthesia follow up: Airway intact: Yes Vital signs: Temperature 97.2 F Pulse Rate 76 Respiratory Rate 17 Blood Pressure 110/57 Pulse Oximetry 93 Oxygen Delivery Me thod Nasal Cannula Oxygen Flow Rate 3 Fraction of Inspir ed Oxygen Hydration adequate: Yes Nausea and vomiting: No Pain level: 1 Mental status: Baseline
[2025-05-07 10:13] LABS: Cyto Order Verification Order Verified
[2025-05-07 10:13] LABS: Cyto Order Verification Order Verified
[2025-05-07 10:14] LABS: Cyto Order Verification Order Verified
[2025-05-07 10:14] LABS: Cyto Order Verification Order Verified
[2025-05-07 10:14] LABS: Cyto Order Verification Order Verified
[2025-05-07 10:15] LABS: Cyto Order Verification Order Verified
[2025-05-07 10:15] LABS: Cyto Order Verification Order Verified
[2025-05-07 10:37] LABS: Apprearance, Bronch Wash Bloody (CLEAR); Bronch Source RIGHT AND LEFT; Color, Bronc Wash Red; PATH Referral Yes; Total Cells Counted Bronch 200
--- NOTE | 2025-05-07 10:37 | PM.OP ---
Operative Report Date of procedure: May 07, 2025 Pre-op diagnosis: Right lower lobe lung mass Post-op diagnosis: Same Procedure done: Therapeutic bronchoscopy/diagnostic EBUS Implants: None Specimens removed/disposition: Cytology samples Surgical pathology samples BAL Surgeon: Claudine Jain MD Residential Sales Executive: Jossue Purvis NP Estimated blood loss: Minimal, around 5 cc Complications: Mom Procedure: Procedure: Bronchoscopy Attending: Claudine Jain MD Indication: Lung mass Medications: Lidocaine 2% (12 mL) applied to the tracheobronchial tree Anesthesia: General anesthesia per anesthesia team Procedure: Pre-Anesthesia Assessment [place] Protocol: Pre-procedure Verification: Prior to the procedure, the patient's identity was confirmed using full name, date of , and medical record number. Identity verification included a review of all relevant medical records, history, physical examination, medications, allergies, and previous anesthesia tolerance. Risks, benefits, sedation options, and associated risks were reviewed with the patient, and informed consent was obtained after addressing all questions. Time-Out: Immediately before the procedure, a time-out was conducted to confirm patient identification, procedure details, consent, image labeling, and the need for prophylactic antibiotics. This was verified by the physician, nurse, anesthesiologist, and catalyst operator gasoline. Outcome: The procedure was completed without difficulty, and the patient tolerated it well. Findings: A thorough airway exam was performed after passage of the bronchoscope. The larynx and vocal cords were anatomically normal. The trachea was anatomically normal. The right sided airway showed because of moderate amount of mucoid secretions that required therapeutic suctioning (45265) after suctioning I was able to see a well-healed right upper lobe stump from previous right upper lobectomy.? There was complete obstruction of the right lower lobe truncus basalis by a mixed region (endobronchial tumor and excessive compression.? Right middle lobe and superior segment of the right lower lobe were narrowed from extensive compression as well. The left sided airway was anatomically normal without endobronchial lesions. The therapeutic bronchoscope was removed and the EBUS scope was inserted (02804). Level 11L station was identified with the EBUS scope at the LLL/L hilum and 4 passes were made using a 21/22G Olympus TBNA needles. Level 4L station was identified with the EBUS scope at the lateral LMSB and 3 passes were made using a 21/22G Olympus TBNA needles.? Level 7 station was identified with the EBUS scope at the medial LMSB/RMSB and 4 passes were made using a 22G Olympus TBNA needle. Level 4R station was identified with the EBUS scope at the lateral RMSB and 3 passes were made using a 21/22G Olympus TBNA needle.? Level 11R station was identified with the EBUS scope at the RBI/R hilum and 3 passes were made using a 21/22G Olympus TBNA needles. Right lower lobe mass was identified with EBUS scope at the distal bronchus intermedius and 5 passes were made using 21/22-gauge Olympus TBNA needle. Then using the same TBNA needle track a cryoprobe 1.1 was passed for cryo TBBX biopsy after freezing for 5-10 seconds and we are able to obtain 5 samples (48132). EBUS scope was removed and exchanged for therapeutic scope. Endobronchial biopsy (60149) and tumor debulking (84014) using cryoprobe 1.7 mm was performed which resulted in partial recanalization of the right lower lobe truncus basalis followed by balloon dilation using 6 ? 7 ? 8 elation balloon and dilated up to 8 mm which ?improved the patency of the airway as I was able to advance the probe to the distal airways. The bronchoscope was advanced until wedged at the desired location for bronchoalveolar lavage.? BAL was performed in the right lower lobe of the lung.? 120 mL of fluid were instilled.? 60 mL were returned. (16281) Patient required a total of 4 cc of topical epinephrine (1 1: 20,000) to achieve hemostasis [place] Bleeding Scale: Grade 2 Following completion of all diagnostic and therapeutic procedures, hemostasis was verified.? The scope was removed and procedure concluded In summary, the following procedures were performed: 80606 BAL, (Bronchoalveolar Lavage), 61234 EBBX (Endobronchial biopsies), 56281 TBBX, (Transbronchial biopsies, first lobe), 41457 cEBUS 3 or more lesions, (Central curvelinear EBUS 3 or more lesions), ? 16190 Therapeutic aspiration of secretions, 05056 Dilation, Tracheal or Bronchial, (CRE Balloon, Elation balloon, Rigid bronchoscope dilation), 88142 endobronchial tumor debulking/destruction
[2025-05-07 11:50] LABS: Lymphocytes % Bronch 8.00 % (10.71-12.91); Macrophages % Bronch 15.00 % (83.6-86.8); Neutrophils % Bronch 76.00 % (0.9-2.3)
[2025-05-07 11:51] LABS: Other Cells, Bronch Wash 1 %
[2025-05-07] MEDS: FUROsemide 10 mg/mL SDV 2mL 20 MG IVP (12:48)
[2025-05-18 12:47] LABS: PD-L1 (Clone 22C3) by IHC BBPL See Report
== END 2025-05-07 13:09 | disposition home or self-care (01) ==
PROVIDERS: PCP Family Medicine; Visit Provider Internal Medicine
PROC: 0BJ08ZZ Inspection of Tracheobronchial Tree, Via Natural or Artificial Opening Endoscopic (ICD-10-PCS; CPT 31622; principal; 2025-05-07 07:00)
PROC: BB4BZZZ Ultrasonography of Pleura (ICD-10-PCS; CPT 31622; 2025-05-07 07:00)
DX: C34.90 Malignant neoplasm of unspecified part of unspecified bronchus or lung (principal); I10 Essential (primary) hypertension; F17.210 Nicotine dependence, cigarettes, uncomplicated; Z90.2 Acquired absence of lung [part of]; Z79.82 Long term (current) use of aspirin; E78.5 Hyperlipidemia, unspecified
CPT/HCPCS: 31622; 31654; 71045; 80503; 87015; 87070; 87077; 87102; 87116; 87186; 87205; 87206; 87801; 88112; 88305; 88341; 88342; 89050; 94640; J0169; J1100; J1938; J2371; J2405; J2704; J3010; J7030; J7613; J7644; J9999

== ENCOUNTER → 2025-05-15 08:31 | Outpatient (BNVA) | payer MEDICARE, BC, SELFPAY | PROVIDERS: PCP Family Medicine; Visit Provider Internal Medicine | DX: C34.31 Malignant neoplasm of lower lobe, right bronchus or lung (principal); F17.210 Nicotine dependence, cigarettes, uncomplicated; J13 Pneumonia due to Streptococcus pneumoniae; R63.4 Abnormal weight loss; Z90.2 Acquired absence of lung [part of] | CPT/HCPCS: 99215 ==

== ENCOUNTER 2025-05-19 11:01 | Outpatient (CLI) | payer MEDICARE, BC, SELFPAY ==
[2025-05-19 11:22] VITALS: PULSE 68; RESP 18; O2SAT 96
== END 2025-05-19 11:02 | disposition home or self-care (01) ==
LOC: RT 11:02
PROVIDERS: PCP Family Medicine; Visit Provider Internal Medicine
DX: R06.09 Other forms of dyspnea (principal); R05.9 Cough, unspecified; C34.90 Malignant neoplasm of unspecified part of unspecified bronchus or lung
CPT/HCPCS: 94060; 94726; 94729; J7613

== ENCOUNTER 2025-05-20 15:43 | Outpatient (CLI) | payer MEDICARE, BC, SELFPAY ==
--- NOTE | 2025-05-20 16:00 | MR_ITS ---
WS: [id number] MRI BRAIN WITH AND WITHOUT CONTRAST HISTORY: rule out malignancy COMPARISON: None available. TECHNIQUE: Multiplanar imaging performed through the brain with MultiHance 16 ml's IV. No acute infarcts are seen. Maxwell-white matter differentiation is well preserved. Mild symmetric cerebral and cerebellar atrophy. Scattered T2 and FLAIR signal hyperintensities throughout the supratentorial white matter. Confluent disease surrounding the ventricles. Additional moderate bilateral small vessel changes in the paul. Prominent perivascular space in the RIGHT temporal lobe. Mild hippocampal atrophy. No susceptibility artifacts or prior lacunar infarcts. Ventricles and extra-axial spaces are prominent on the basis of atrophy. RIGHT occipital sulcus is prominent. Clivus and pituitary gland are normal. Postcontrast images are negative for masses or vascular malformations. Dural venous sinuses are normal. Paranasal sinuses: Well aerated with no significant disease. Mastoid air cells: Normal. Calvarium and scalp: Normal. MR/MR head wo/w con [id number] IMPRESSION: 1. No metastatic disease to the brain identified. No enhancing masses or vascu lar malformations. 2. No acute infarct. 3. Moderate small vessel changes throughout the supratentorial white matter an d bilaterally within the paul. 4. No prior infarct. 5. Mild cerebral atrophy and hippocampal atrophy.
[2025-05-20] MEDS: gadobenate dimeglumine 20 mL vial IV (16:24)
== END 2025-05-20 15:44 | disposition home or self-care (01) ==
LOC: RAD 15:43
PROVIDERS: PCP Family Medicine
DX: C34.90 Malignant neoplasm of unspecified part of unspecified bronchus or lung (principal); Z12.89 Encounter for screening for malignant neoplasm of other sites
CPT/HCPCS: 70553

== ENCOUNTER 2025-05-21 09:30 | Oncology outpatient (recurring) (ONCR) | payer MEDICARE, BC, SELFPAY ==
--- NOTE | 2025-05-18 09:41 | N.ONRAD NP_ITS ---
Radiation Oncology New Patient Visit Patient: Dat Sims MR#: [id number] : 1955 Age: 69 Sex: Male Dictated by: Dr. Dany Andrade, /JEREMIAH/BIBIANA Date of Service: 05/18/2025 Referring Physician(s) : WILD Diagnosis: RML/RLL SCC, 6.5 X 2.4CM, RT PERIHILAR 4.5 X 3CM (18.3), PRIPHERAL RLL/RML 4 X 3.7 (20.6), RT HILAR LN1.9 CM (10.7), BRONCH + STA 7, + COUGH/CORONADO, 30#WT LOSS OVER 1.5 YRS, + 106PYSH, ACTIVE SMOKER, MRI BRAIN 05/20. PFT 05/19, DX CT CHEST PENDING, PORT PENDING, CT CHEST SIM 1-2 DAYS AFTER PORT PLACEMENT, PRIOR RUL LOBECTOMY IN [place] 3 YRS AGO STAGE: III- ICD-10: C34.31, C34.2, C77.1 Radiotherapy to date: Summary > No prior radiation therapy. Chief Complaint / History of Present Illness: Patient here to discuss treatment options regarding stage III SCC. This is of pleasant looks older than stated age is a 69-year-old male. The patient has a remote history 3 years ago of a right upper lobe lobectomy for cancer histology unknown. It was noted to be stage I and no further treatment offered. He was lost to follow-up and moved to the [place] area in September 2024. He saw PCP who ordered a CAT scan on 11/11/2024. This showed right perihilar narrowing of the RML with complete obstruction of the RLL measuring 6.5 x 2.4 cm. He underwent cervical neck cage stabilization in January. PET/CT on 03/20/2025 showed a right perihilar mass measuring 4.5 x 3 cm (18.3) peripheral lesion measuring 4 x 3.7 cm (20.6) and right hilar LN measuring 1.9 cm (10.7). Patient was seen by medical oncology on 04/21/2025. He was referred to pulmonology. Bronchoscopy EBUS on 05/07/2025 returned positive SCC of station 7. Patient was seen again by medical oncology on 05/18/2025 and referred to radiation oncology for further evaluation. He will need a new diagnostic CT of the chest since PET/CT was done on 03/20/2025. Patient has PFTs on 729, MRI of the brain on 05/20/2025 and port placement pending. Current Medications: amoxicillin-pot clavulanate 875-125 mg 1 tab PO BID 7 days aspirin (Adult Aspirin Regimen) 81 mg PO DAILY carvedilol 3.125 mg PO DAILY lisinopril 40 mg PO DAILY rosuvastatin 5 mg PO DAILY Allergies: No Known Allergies Allergy Medical History: No history of collagen vascular disease. No previous radiation therapy. Peripheral arterial disease Hx of cancer of lung Hypertension Hyperlipidemia Lumbar disc disease Surgical History: S/P lobectomy of lung right upper lobe History of knee surgery History of carpal tunnel surgery History of atherectomy both legs and stomach H/O neck surgery S/P hip replacement Family History: No history of lung cancer. Social History: Patient is and recently moved from [place]. He is [id number] smoker and presently smokes approximately 1 pack/day. He denies ethanol product use or illegal drug use. He lives with his and daughter. 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 As above Vital Signs: Performed on 05/18/2025 8:25 AM BMI - 23.776 kg/m2 (high), Height - 69 in, Weight - 161 lbs, Temperature - 98.7 f, Pulse - 76 /min, Respiration - 17 /min, O2 Sat - 99 %, Pain - 0, Fatigue - 0 and BP - 138/ 72 mm(hg). Physical Exam: Alert and oriented and answers questions appropriately. He looks greater than stated age. Head is normocephalic without masses. Oral cavity exam showed no mucosal lesions. Neck is supple with no lymphadenopathy Lungs CTAB with no intercostal retraction Abdomen is soft nontender with no hepatosplenomegaly. Extremities intact x 4. Mild clubbing noted. Presently utilizing a roller walker. Vertebral exam shows healed incision for cervical neck cage stabilization. No other vertebral tenderness. Performance Status: KPS 80 Pathology: SCC station 7 Lab: Imaging: See HPI Impression: RML/RLL SCC, 6.5 X 2.4CM, RT PERIHILAR 4.5 X 3CM (18.3), PRIPHERAL RLL/RML 4 X 3.7 (20.6), RT HILAR LN1.9 CM (10.7), BRONCH + STA 7, + COUGH/CORONADO, 30#WT LOSS OVER 1.5 YRS, + 106PYSH, ACTIVE SMOKER, MRI BRAIN 05/20. PFT 05/19, DX CT CHEST PENDING, PORT PENDING, CT CHEST SIM 1-2 DAYS AFTER PORT PLACEMENT, PRIOR RUL LOBECTOMY IN [place] 3 YRS AGO STAGE: III- ICD-10: C34.31, C34.2, C77.1 PLAN: Options were discussed with patient and . Questions were answered. Diagnostic CT of the chest with and without contrast to evaluate present tumor size PFTs on 729 MRI of the brain 05/20/[address] SIM CHEST 1-2 DAYS AFTER PORT PLACEMENT Plan 6600 to 7000 cGy in conventional fractionation along with weekly chemotherapy. Signed by: 05/18/2025 9:39:20 AM <<Signature on File>> Time spent with patient//REVIEW OF RECORDS/record preparation: 75 minutes CPT Code: CPT Code:
--- NOTE | 2025-05-21 09:30 | CT_ITS ---
WS: [id number] CT chest w con* [id number] HISTORY: C34.2 - Malignant neoplasm of middle lobe, bronchus or lung TECHNIQUE: Axial imaging performed through the thorax. Coronal and sagittal reformats are submitted. All CT scans at [facility] use at least one of these dose optimization techniques: automated exposure control; mA and/or kV adjustment per patient size (includes targeted exams where dose is matched to clinical indication); or iterative reconstruction. CONTRAST: Omnipaque 350; 100 mL IV. DLP: 322.14 mGy.cm COMPARISON: 11/11/2024, PET/CT 03/20/2025 Lungs and central airway: As per history status post RIGHT upper lobectomy. Irregular masslike consolidation centered at the RIGHT hilum measures 4.8 x 3.9 x 3.2 cm. Partial narrowing of the bronchovascular tree. There is contiguous consolidation into the RIGHT lower lobe with an additional enhancing mass in the RIGHT lower lobe measuring 4.7 x 3.7 x 2.6 cm. There are intervening areas of consolidation and bronchial dilatation between the 2 masslike consolidations. Additional interstitial thickening and hazy consolidation extending into the RIGHT middle lobe and surrounding the RIGHT lower lobe dense masses. Mild thickening along the fissure. Masslike consolidations have not improved since the PET/CT. There is an additional ovoid nodule LEFT upper lobe measuring 0.9 x 0.5 cm which was also positive on the PET/CT. No interval change. Pleura: Small RIGHT pleural effusion no change. Heart and pericardium: Normal size heart with no pericardial effusion. Mediastinum and miriam: Necrotic subcarinal lymph node 2.0 cm is new. Inferior RIGHT paratracheal lymph nodes measuring up to 1.7 cm is unchanged. Vessels: Mild atherosclerosis aorta. No aneurysm. Normal size pulmonary artery. Chest wall and lower neck: No soft tissue masses. Upper abdomen: Suprarenal aortic calcifications. Plaque extends into the mesenteric arteries and the renal arteries. Mild stenosis at the origin of the SMA and celiac axis. More dense calcification at the origin of the renal arteries. Visualized kidneys are enhancing normally. No metastatic disease in the adrenal glands or liver as visualized. Osseous structures: 50% compression fracture L1 with 3 mm retropulsion. No osteoblastic or osteolytic bone disease. CT/CT chest w con* [id number] IMPRESSION: 1. PET/CT positive neoplastic consolidations reidentified at the RIGHT hilum a nd RIGHT lower lobe. Hilar mass measures 4.8 x 3.9 x 3.2 cm. Peripheral RIGHT l ower lobe mass measures 4.7 x 3.7 x 2.6 cm. No interval change or improvement s teresita the PET/CT 03/20/2025. 2. Necrotic subcarinal lymph node 2.0 cm. Inferior RIGHT paratracheal lymph no de 1.7 cm. Abnormal lymph nodes. Likely metastatic disease. 3. PET/CT positive nodule LEFT upper lobe 0.9 x 0.5 cm is unchanged. 4. No adrenal mass. 5. Status post RIGHT upper lobectomy.
[2025-05-21] MEDS: iohexol 350 mg/mL 500 mL Btl (per mL) IV (09:39)
== END 2025-05-21 23:59 | disposition home or self-care (01) ==
LOC: RAD 05-22 → ONCMED 05-25 09:39
PROVIDERS: PCP Family Medicine; Visit Provider Internal Medicine Medical Oncology
DX: Z53.9 Procedure and treatment not carried out, unspecified reason; C34.2 Malignant neoplasm of middle lobe, bronchus or lung; Z90.2 Acquired absence of lung [part of]; R59.0 Localized enlarged lymph nodes
CPT/HCPCS: 71260; 99205; 99214

== ENCOUNTER → 2025-05-28 08:03 | Outpatient (BNVA) | payer MEDICARE, BC, SELFPAY | PROVIDERS: PCP Family Medicine; Visit Provider Student in an Organized Health Care Education/Training Program | DX: Z95.828 Presence of other vascular implants and grafts (principal); C34.2 Malignant neoplasm of middle lobe, bronchus or lung | CPT/HCPCS: 99204 ==

== ENCOUNTER 2025-06-01 05:45 | Day surgery (SDC) | payer MEDICARE, BC, SELFPAY ==
[2025-06-01 06:03] VITALS: BMI 24.0
--- NOTE | 2025-06-01 06:04 | ANES.PREANE2 ---
Pre-Anesthetic Assessment Height/Weight: Height 5 ft 9 in Preop Diagnosis: lung CA Operation Date: 06/01/25 07:00 Proposed Procedures p Insertion Central Venous Access Device Port a Cath Insertion [id number], C34.2(Not Applicable) - Hans Calderon MD Was Beta Payam taken within 24 hours: Yes Was Clonidine taken within 24 hours: N/A Social Tobacco and No alcohol Exam alert and oriented x 3 Airway Submandibular: within normal limits Cervical ROM: within normal limits Mallampati: Class III Comments: Comments: edentulous Anesthetic Plan ASA status: 4 Anesthesia: MAC Other: No prior issues with anesthesia, recent EBUS with pulmonary stent placement NPO since yesterday evening History of hypertension on lisinopril and carvedilol Chronic smoker, approximately [id number]-[id number] history Patient with lung cancer, mass in right lung. Measures 6.5 x 2.4 cm Prior lobectomy of right upper lung, plan for chemo and radiation EKG sinus rhythm with early repolarization Labs reviewed from 05/06/2025 and acceptable for procedure echo 05/06/25 showing EF 60% with no RWMA Plan for general anesthesia Medications/Allergies Home Medications ?Medication ?Instructions ?Recorded ?Confirmed ?Last Taken ?Type aspirin 81 mg tablet,delayed 81 mg PO BEDTIME 10/21/24 06/01/25 05/28/25 History release (Adult Aspirin Regimen) ondansetron HCl 4 mg tablet 4 mg PO Q6H PRN nausea and 05/18/25 05/29/25 Unknown Rx vomiting #30 tabs prochlorperazine maleate 10 mg 10 mg PO Q4H PRN mild nausea #30 05/18/25 05/29/25 Unknown Rx tablet (Compazine) tabs carvedilol 3.125 mg tablet 3.125 mg PO BEDTIME 06/01/25 06/01/25 05/28/25 History lisinopril 40 mg tablet 40 mg PO BEDTIME 06/01/25 06/01/25 05/28/25 History rosuvastatin 5 mg tablet 5 mg PO BEDTIME 06/01/25 06/01/25 05/28/25 History Allergies Allergy/AdvReac Type Severity Reaction Status Date / Time No Known Allergies Allergy Verified 05/28/25 08:04 [facility] Anesthesia Medical History Peripheral arterial disease Hx of cancer of lung Hypertension Hyperlipidemia Lumbar disc disease Surgical History S/P lobectomy of lung right upper lobe History of knee surgery History of carpal tunnel surgery History of atherectomy both legs and stomach H/O neck surgery S/P hip replacement Social History Smoking and tobacco/nicotine status: current every day tobacco/nicotine user (1 ppd) cigarettes Packs smoked per day: 1 Years cigarettes smoked: 53 [ Other cigarette details: 2ppd when working] Alcohol intake: never Substance/Drug Use: never Household members: spouse and children Housing: House Marital status: Current occupational status: retired 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
--- NOTE | 2025-06-01 06:18 | SC_ITS ---
WS: [id number] C-ARM RADIOGRAPHS CHEST; 2 IMAGES HISTORY: Port-A-Cath placement COMPARISON: None available. Right-sided Port-A-Cath placement. SC/C-arm FL for CVA [id number] IMPRESSION: Intraoperative imaging during RIGHT Port-A-Cath placement.
[2025-06-01] MEDS: ceFAZolin 2,000 mg SDV 2000 MG IVP (07:01)
--- NOTE | 2025-06-01 07:04 | W.PM.OPSUD ---
Surgery/Procedure H&P Update DATE OF PROCEDURE: June 01, 2025 DATE H&P PERFORMED: 05/28/25 H&P UPDATE INFORMATION: I have reviewed H&P completed within last 30 days, I have examined patient prior to procedure and No changes to prior documentation PREOP DIAGNOSIS: lung CA PLANNED PROCEDURE: Operation Date: 06/01/25 07:00 Proposed Procedures p Insertion Central Venous Access Device Port a Cath Insertion [id number], C34.2(Not Applicable) - Hans Calderon MD
[2025-06-01] MEDS: heparin, porcine 1,000 unit/mL INJ 10 mL 6000 UNIT IRRIGATION (07:41)
[2025-06-01] MEDS: lidocaine-epi 1% 20 mL INJ 10 ML INJECTION (07:42)
[2025-06-01] MEDS: BUPivacaine 0.25% INJ 30 mL 10 ML INJECTION (07:43)
--- NOTE | 2025-06-01 07:51 | P.OP_ITS ---
Operative Report Date of procedure: June 01, 2025 Pre-op diagnosis: Lung cancer Post-op diagnosis: same Post-op findings: Tip of catheter at atriocaval junction confirmed with intraoperative fluoroscopy Procedure done: Port-A-Cath placement Implants: Port-A-Cath Specimens removed/disposition: N/A Pathology: none sent Surgeon: Hans Calderon MD Aircraft Systems Repairer: N/A Anesthesia: MAC Estimated blood loss (mL): 10 Complications: N/A Findings: Tip of catheter confirmed at atriocaval junction with intraoperative fluoroscopy Condition: stable Disposition: same day Brief History: 69-year-old male who presented for Port-A-Cath placement. History of lung cancer. Discussed risk and benefits and patient agreed to proceed with Port-A-Cath placement. Procedure: Patient was brought into the operating room and a timeout was carried out. Procedure was done under MAC. Patient was placed supine with the arms tucked and in Trendelenburg. Patient was prepped and draped in the usual sterile fashion. Using ultrasound guidance the right internal jugular vein was accessed. A guidewire was then placed down to the atriocaval junction using fluoroscopy. The finder needle was removed and the guidewire was secured. I then turned my attention to creating a pocket over the right chest. Make sure to locally infiltrated using plain lidocaine and bupivacaine at the site of the pocket and throughout the tunnel site. I confirmed adequate hemostasis at the p ocket. I then proceeded to place the port that was already preassembled and flushed with heparinized saline and the chest pocket. I tunneled the catheter from the chest to the neck at the site where I accessed the internal jugular vein. I measured and adjusted the length of the catheter so it would reach the atrial caval junction. At this point, I used a dilator to dilate the tract into the internal jugular vein using fluoroscopy. I removed the guidewire and proceeded to thread the central venous catheter through the introducer. In the process, I removed the sheath as a completely pushed the catheter into the internal jugular vein. I then confirmed adequate placement of the catheter by performing intraoperative interpretation of fluoroscopy. The tip of the catheter was confirmed to be placed in the atriocaval junction. There were no kinks noted throughout the trajectory of the catheter. I then proceeded to test the port and was satisfied with its functionality. I proceeded to flushed the catheter without any issues. I then hep-locked the port. Skin was closed using deep dermal 3-0 Vicryl, subcuticular 4-0 Monocryl, and Dermabond. Patient was then transferred to PACU without any complications.
[2025-06-01 07:58] VITALS: BP 110/90; PULSE 67; RESP 14; TEMP 36.4; O2SAT 95
[2025-06-01 08:03] VITALS: BP 93/53; PULSE 67; RESP 16; O2SAT 93
[2025-06-01 08:08] VITALS: BP 105/59; PULSE 66; RESP 17; O2SAT 92
[2025-06-01 08:13] VITALS: BP 98/62; PULSE 67; RESP 16; TEMP 36.1; O2SAT 93
[2025-06-01 08:16] VITALS: BP 116/71; PULSE 65; RESP 16; TEMP 36.6; O2SAT 95
[2025-06-01 08:31] VITALS: BP 111/75; PULSE 66; RESP 17; O2SAT 95
--- NOTE | 2025-06-01 08:45 | ANE.PACU2 ---
Inpatient post-anesthesia follow up: Airway intact: Yes Vital signs: Temperature 98 F Pulse Rate 66 Respiratory Rate 17 Blood Pressure 111/75 Pulse Oximetry 95 Oxygen Delivery Me thod Room Air Oxygen Flow Rate Fraction of Inspir ed Oxygen Hydration adequate: Yes Nausea and vomiting: No Pain level: 1 Mental status: Baseline
== END 2025-06-01 08:45 | disposition home or self-care (01) ==
PROVIDERS: PCP Family Medicine; Visit Provider Student in an Organized Health Care Education/Training Program
PROC: (CPT 36561; principal; 2025-06-01 07:00)
DX: C34.90 Malignant neoplasm of unspecified part of unspecified bronchus or lung (principal); I10 Essential (primary) hypertension; F17.210 Nicotine dependence, cigarettes, uncomplicated; Z90.2 Acquired absence of lung [part of]; E78.5 Hyperlipidemia, unspecified; Z79.82 Long term (current) use of aspirin
CPT/HCPCS: 36561; 76000; 77001; C1788; J0690; J1644; J2371; J2704; J3010; J3490; J7030; J7644; J9999

== ENCOUNTER → 2025-06-05 12:14 | Day surgery (SDC) | payer MEDICARE, BC, SELFPAY ==
[2025-06-05 12:35] VITALS: BP 97/51; PULSE 77; RESP 16; O2SAT 95
--- NOTE | 2025-06-05 12:43 | US_ITS ---
WS: [id number] ULTRASOUND-GUIDED THORACENTESIS, RIGHT HISTORY: NSCLC right middle lobe Procedure, risks, and complications were explained to the patient. With the patient in an upright position, the skin over the RIGHT posterior thorax was cleansed with ChloraPrep and anesthetized with 1% buffered lidocaine. A 5 Hebrew Yueh needle is inserted into the pleural fluid without complication. Approximately 600 cc of mid yellow pleural fluid is removed without difficulty. US/ thoracentesis [id number] IMPRESSION: 1. RIGHT thoracentesis yielding 600 cc of fluid. 2. Chest radiograph to follow to evaluate for pneumothorax.
[2025-06-05 13:05] VITALS: BP 109/65; PULSE 73; RESP 16; O2SAT 94
--- NOTE | 2025-06-05 13:14 | XR_ITS ---
WS: [email or web address] PORTABLE CHEST HISTORY: Post RIGHT thoracentesis. COMPARISON: 05/07/2025. No pneumothorax status post RIGHT thoracentesis. There is consolidation persisting at the RIGHT lung base. LEFT lung is clear. Cardiac size: Normal. Mediastinum/Aorta: Normal mediastinum. No osseous abnormality seen. RIGHT [facility]. XR/XR chest 1V portable [id number] IMPRESSION: No pneumothorax status post RIGHT thoracentesis.
== END ==
PROVIDERS: Radiology Diagnostic Radiology; PCP Family Medicine; Visit Provider Radiology Radiation Oncology
PROC: (CPT 32554; principal; 2025-06-05 13:00)
DX: C34.2 Malignant neoplasm of middle lobe, bronchus or lung (principal)
CPT/HCPCS: 32555; 71045

== ENCOUNTER 2025-07-21 07:45 | Oncology outpatient (recurring) (ONCR) | payer MEDICARE, BC, SELFPAY ==
[2025-07-14 07:45] LABS: Hematocrit 35.5 % (37-53); Hemoglobin 12.40 g/dL (11.27-16.99); Mean Corpuscular HGB Conc 34.9 g/dL (30-55); Mean Corpuscular Hemoglobin 34.2 pg (27-33); Mean Corpuscular Volume 97.8 fl (82-101); Nucleated Red Blood Cells % 0 %; Platelet Count 127 10^3/cmm (157-399); Red Blood Count 3.63 10^6/uL (3.85-5.65); White Blood Count 2.58 10^3/uL (3.29-11.43)
[2025-07-14 08:04] LABS: Alanine Aminotransferase 17 U/L (0-41); Albumin Level 4.2 g/dL (3.5-5.2); Alkaline Phosphatase 90 U/L (40-130); Anion Gap 14.0 (5-19); Aspartate Amino Transferase 23 U/L (0-40); Blood Urea Nitrogen 16 mg/dL (8-23); Calcium 8.5 mg/dL (8.5-10.5); Carbon Dioxide 25 mmol/L (22-29); Chloride 103 mmol/L (98-107); Creatinine Clr Calc Pharmacy 88.3750; Globulin 2.0 g/dL (1.3-4.6); Glucose 96 mg/dL (65-115); Osmolality Calculated 287 mOsm/kg (285-295); Potassium 4.0 mmol/L (3.5-5.1); Sodium 138 mmol/L (136-145); Total Protein 6.2 g/dL (6.6-8.7)
--- NOTE | 2025-07-14 08:29 | ONCRAD TMN_ITS ---
Radiation Oncology Weekly Treatment Management Patient: Bethany Rojas MR#: [id number] : 1955> Attending Physician: Ananda Andrade Date of Service: 07/14/2025 Referring Physician(s) : Diagnosis: C34.31 - Malignant neoplasm of lower lobe, right bronchus or lung, Diagnosed 05/07/2025 (Active) C77.1 - Secondary and unspecified malignant neoplasm of intrathoracic lymph nodes, Diagnosed 05/07/2025 (Active) C34.2 - Malignant neoplasm of middle lobe, bronchus or lung, Diagnosed 03/20/2025 (Active) Radiotherapy to date: Course: Rt Lung 2024, Treatment Site: Rt Lung, Ref. ID: [id number] Total, Energy: 6X, Dose/Fx (cGy): 200, #Fx: , Dose Correction (cGy): 0, Total Dose Delivered (cGy): 4,600, Start Date: 06/11/2025, Elapsed Days: 33 Reason for visit: The patient is being seen today as part of their regularly scheduled weekly on treatment visits to assess for acute toxicities from radiotherapy. Review of Systems: Patient gained 3 pounds since last visit. Labs from last week were adequate for treatment. Labs pending for today's chemotherapy treatment. No voice complaints. Vital Signs: Performed on 07/14/2025 8:02 AM BMI - 24.662 kg/m2 (high), Height - 69 in, Weight - 167 lbs, Temperature - 98 f, Pulse - 85 /min, Respiration - 15 /min, O2 Sat - 98 %, Pain - 0, Fatigue - 0 and BP - 131/ 75 mm(hg). Physical Exam: AAOx3. Skin intact. No intercostal retraction noted. Imaging: Radiation therapy imaging related to accurate target localization (i.e. KV, MV and CBCT) was reviewed. Appropriate changes, if any, were made to ensure treatment accuracy. Plan: Continue XRT Chemotherapy today after labs reviewed. Continue calorie intake. Signed by: Ananda Andrade 07/14/2025 8:27:38 AM
[2025-07-14] MEDS: diphenhydrAMINE 50 mg/mL SDV 1mL 25 MG IVP (09:33)
[2025-07-14] MEDS: PACLitaxeL 90 MG in sodium chloride 0.9%(non-DEHP) 250 ML 265 MG IV (10:45)
[2025-07-14] MEDS: CARBOplatin 210 MG in sodium chloride 0.9% 500 ML 521 MG IV (12:09)
[2025-07-14 13:20] VITALS: BP 107/69; PULSE 87; RESP 17; TEMP 35.9; O2SAT 96
[2025-07-21 07:28] LABS: Hematocrit 34.6 % (37-53); Hemoglobin 11.90 g/dL (11.27-16.99); Mean Corpuscular HGB Conc 34.4 g/dL (30-55); Mean Corpuscular Hemoglobin 34.6 pg (27-33); Mean Corpuscular Volume 100.6 fl (82-101); Nucleated Red Blood Cells % 0 %; Platelet Count 104 10^3/cmm (157-399); Red Blood Count 3.44 10^6/uL (3.85-5.65); White Blood Count 2.07 10^3/uL (3.29-11.43)
[2025-07-21 07:49] LABS: Alanine Aminotransferase 21 U/L (0-41); Albumin Level 4.1 g/dL (3.5-5.2); Alkaline Phosphatase 82 U/L (40-130); Anion Gap 13.9 (5-19); Aspartate Amino Transferase 24 U/L (0-40); Blood Urea Nitrogen 14 mg/dL (8-23); Calcium 8.6 mg/dL (8.5-10.5); Carbon Dioxide 25 mmol/L (22-29); Chloride 107 mmol/L (98-107); Creatinine Clr Calc Pharmacy 88.8849; Globulin 2.3 g/dL (1.3-4.6); Glucose 101 mg/dL (65-115); Osmolality Calculated 295 mOsm/kg (285-295); Potassium 3.9 mmol/L (3.5-5.1); Sodium 142 mmol/L (136-145); Total Protein 6.4 g/dL (6.6-8.7)
--- NOTE | 2025-07-21 08:52 | ONCRAD TMN_ITS ---
Radiation Oncology Weekly Treatment Management Patient: Dat Sims MR#: [id number] : 1955 Attending Physician: Dr. Faustina Perkins Date of Service: 07/21/2025 Patient is doing well. He has no complaints today. His respiratory status has remained stable. He has no trouble swallowing. Referring Physician(s) : Diagnosis: C34.31 - Malignant neoplasm of lower lobe, right bronchus or lung, Diagnosed 05/07/2025 (Active) C77.1 - Secondary and unspecified malignant neoplasm of intrathoracic lymph nodes, Diagnosed 05/07/2025 (Active) C34.2 - Malignant neoplasm of middle lobe, bronchus or lung, Diagnosed 03/20/2025 (Active) Radiotherapy to date: Course: Rt Lung 2024, Treatment Site: Rt Lung, Ref. ID: PTV Total, Energy: 6X, Dose/Fx (cGy): 200, #Fx: 27 / 33, Dose Correction (cGy): 0, Total Dose Delivered (cGy): 5,400, Start Date: 06/11/2025, End Date: 07/20/2025, Elapsed Days: 39 Reason for visit: The patient is being seen today as part of their regularly scheduled weekly on treatment visits to assess for acute toxicities from radiotherapy. Review of Systems: Vital Signs: Performed on 07/21/2025 8:21 AM BMI - 24.957 kg/m2 (high), Height - 69 in, Weight - 169 lbs, Temperature - 97.7 f, Pulse - 84 /min, Respiration - 17 /min, O2 Sat - 97 %, Pain - 0, Fatigue - 0 and BP - 147/ 68 mm(hg)(high/). Physical Exam: No changes on exam Imaging: Radiation therapy imaging related to accurate target localization (i.e. KV, MV and CBCT) was reviewed. Appropriate changes, if any, were made to ensure treatment accuracy. Plan: Will continue with his treatments as planned. Signed by: Dr. Faustina Perkins 07/21/2025 8:51:03 AM
[2025-07-21] MEDS: diphenhydrAMINE 50 mg/mL SDV 1mL 25 MG IVP (09:13)
[2025-07-21] MEDS: PACLitaxeL 90 MG in sodium chloride 0.9%(non-DEHP) 250 ML 265 MG IV (10:40)
[2025-07-21] MEDS: CARBOplatin 210 MG in sodium chloride 0.9% 500 ML 521 MG IV (11:48)
[2025-07-21 12:59] VITALS: BP 125/67; PULSE 90; TEMP 36.1
== END 2025-07-21 23:59 | disposition home or self-care (01) ==
PROVIDERS: Nurse Practitioner; PCP Family Medicine; Visit Provider Internal Medicine Medical Oncology
DX: Z53.9 Procedure and treatment not carried out, unspecified reason; Z51.0 Encounter for antineoplastic radiation therapy; Z51.11 Encounter for antineoplastic chemotherapy; C34.31 Malignant neoplasm of lower lobe, right bronchus or lung; C77.1 Secondary and unspecified malignant neoplasm of intrathoracic lymph nodes; C34.2 Malignant neoplasm of middle lobe, bronchus or lung; D75.9 Disease of blood and blood-forming organs, unspecified; Z79.52 Long term (current) use of systemic steroids; F17.210 Nicotine dependence, cigarettes, uncomplicated; Z79.633 Long term (current) use of mitotic inhibitor; Z79.899 Other long term (current) drug therapy
CPT/HCPCS: 77336; 77386; 80053; 85025; 96367; 96375; 96413; 96417; 99024; 99212; 99214; J1100; J1200; J2469; J3490; J7040; J7050; J9045; J9267; J9999

== ENCOUNTER 2025-08-04 11:00 | Oncology outpatient (recurring) (ONCR) | payer MEDICARE, BC, SELFPAY ==
[2025-07-28 08:02] LABS: Hematocrit 31.6 % (37-53); Hemoglobin 11.10 g/dL (11.27-16.99); Mean Corpuscular HGB Conc 35.1 g/dL (30-55); Mean Corpuscular Hemoglobin 34.9 pg (27-33); Mean Corpuscular Volume 99.4 fl (82-101); Nucleated Red Blood Cells % 0 %; Platelet Count 125 10^3/cmm (157-399); Red Blood Count 3.18 10^6/uL (3.85-5.65); White Blood Count 1.73 10^3/uL (3.29-11.43)
[2025-07-28 08:11] LABS: Alanine Aminotransferase 19 U/L (0-41); Albumin Level 4.2 g/dL (3.5-5.2); Alkaline Phosphatase 81 U/L (40-130); Anion Gap 13.8 (5-19); Aspartate Amino Transferase 24 U/L (0-40); Blood Urea Nitrogen 17 mg/dL (8-23); Calcium 8.9 mg/dL (8.5-10.5); Carbon Dioxide 27 mmol/L (22-29); Chloride 105 mmol/L (98-107); Globulin 2.1 g/dL (1.3-4.6); Glucose 95 mg/dL (65-115); Osmolality Calculated 295 mOsm/kg (285-295); Potassium 3.8 mmol/L (3.5-5.1); Sodium 142 mmol/L (136-145); Total Protein 6.3 g/dL (6.6-8.7)
--- NOTE | 2025-07-28 08:55 | N.ONRD TS_ITS ---
Radiation Oncology OTV/Treatment Summary Patient: Dat Sims MR#: [id number] : 1955 Age: 70 Sex: Male Dictated by: Dr. Faustina Perkins Date of Service: 07/28/2025 Referring Physician(s) : Diagnosis: C34.31 - Malignant neoplasm of lower lobe, right bronchus or lung, Diagnosed 05/07/2025 (Active) C77.1 - Secondary and unspecified malignant neoplasm of intrathoracic lymph nodes, Diagnosed 05/07/2025 (Active) C34.2 - Malignant neoplasm of middle lobe, bronchus or lung, Diagnosed 03/20/2025 (Active) Vitals: Performed on 07/28/2025 8:18 AM BMI - 23.982 kg/m2 (high), Height - 69 in, Weight - 162.4 lbs, Temperature - 96.5 f, Pulse - 82 /min, Respiration - 17 /min, O2 Sat - 98 %, Pain - 0, Fatigue - 0 and BP - 149/ 77 mm(hg)(high/). Radiotherapy to Date: Course: Rt Lung 2024, Treatment Site: Rt Lung, Ref. ID: PTV Total, Energy: 6X, Dose/Fx (cGy): 200, #Fx: 33 / 33, Dose Correction (cGy): 0, Total Dose Delivered (cGy): 6,600, Start Date: 06/11/2025, End Date: 07/28/2025, Elapsed Days: 47 Clinical Summary: The patient tolerated RT well. He had no trouble swallowing. He had no changes in his respiratory status. He actually had an improvement in his performance status during the course of his treatment Plan: End of treatment today. Continue on the above medication until the skin reaction resolves. Follow up in one month. Signed by: Dr. Faustina Perkins>07/28/2025 8:53:37 AM <<Signature on File>>
[2025-07-28] MEDS: diphenhydrAMINE 50 mg/mL SDV 1mL 25 MG IVP (09:53)
[2025-07-28] MEDS: PACLitaxeL 90 MG in sodium chloride 0.9%(non-DEHP) 250 ML 265 MG IV (11:03)
[2025-07-28] MEDS: CARBOplatin 210 MG in sodium chloride 0.9% 500 ML 521 MG IV (12:35)
[2025-07-28 13:59] VITALS: BP 120/72; PULSE 81; TEMP 35.7; O2SAT 99
[2025-08-04 10:59] LABS: Hematocrit 27.3 % (37-53); Hemoglobin 9.60 g/dL (11.27-16.99); Mean Corpuscular HGB Conc 35.2 g/dL (30-55); Mean Corpuscular Hemoglobin 34.7 pg (27-33); Mean Corpuscular Volume 98.6 fl (82-101); Nucleated Red Blood Cells % 1.0 %; Platelet Count 124 10^3/cmm (157-399); Red Blood Count 2.77 10^6/uL (3.85-5.65); White Blood Count 1.98 10^3/uL (3.29-11.43)
[2025-08-04 11:15] LABS: Alanine Aminotransferase 17 U/L (0-41); Albumin Level 4.0 g/dL (3.5-5.2); Alkaline Phosphatase 73 U/L (40-130); Anion Gap 15.1 (5-19); Aspartate Amino Transferase 23 U/L (0-40); Blood Urea Nitrogen 14 mg/dL (8-23); Calcium 8.4 mg/dL (8.5-10.5); Carbon Dioxide 26 mmol/L (22-29); Chloride 104 mmol/L (98-107); Creatinine Clr Calc Pharmacy 88.6506; Globulin 1.9 g/dL (1.3-4.6); Glucose 92 mg/dL (65-115); Osmolality Calculated 292 mOsm/kg (285-295); Potassium 4.1 mmol/L (3.5-5.1); Sodium 141 mmol/L (136-145); Total Protein 5.9 g/dL (6.6-8.7)
== END 2025-08-21 23:59 | disposition home or self-care (01) ==
PROVIDERS: Internal Medicine Medical Oncology; Nurse Practitioner Family; PCP Family Medicine; Visit Provider Radiology Radiation Oncology
DX: Z51.0 Encounter for antineoplastic radiation therapy; C34.31 Malignant neoplasm of lower lobe, right bronchus or lung; Z53.9 Procedure and treatment not carried out, unspecified reason; Z51.11 Encounter for antineoplastic chemotherapy; C34.90 Malignant neoplasm of unspecified part of unspecified bronchus or lung; C77.1 Secondary and unspecified malignant neoplasm of intrathoracic lymph nodes; C34.2 Malignant neoplasm of middle lobe, bronchus or lung
CPT/HCPCS: 36591; 77336; 77386; 80053; 85025; 96367; 96375; 96413; 96417; 99024; 99214; J1100; J1200; J2469; J3490; J7040; J7050; J9045; J9267; J9999

== ENCOUNTER → 2025-08-18 08:06 | Outpatient (BNVA) | payer MEDICARE, BC, SELFPAY | PROVIDERS: PCP Family Medicine; Visit Provider Orthopaedic Surgery | DX: Z01.818 Encounter for other preprocedural examination (principal); M48.062 Spinal stenosis, lumbar region with neurogenic claudication; M51.9 Unspecified thoracic, thoracolumbar and lumbosacral intervertebral disc disorder | CPT/HCPCS: 36415; 72072; 72110; 80053; 81001; 85025; 99214 ==

== ENCOUNTER 2025-08-25 11:33 | Oncology outpatient (recurring) (ONCR) | payer MEDICARE, BC, SELFPAY ==
[2025-08-25 07:35] LABS: Hematocrit 35.0 % (37-53); Hemoglobin 11.90 g/dL (11.27-16.99); Mean Corpuscular HGB Conc 34.0 g/dL (30-55); Mean Corpuscular Hemoglobin 36.4 pg (27-33); Mean Corpuscular Volume 107.0 fl (82-101); Nucleated Red Blood Cells % 0 %; Platelet Count 146 10^3/cmm (157-399); Red Blood Count 3.27 10^6/uL (3.85-5.65); White Blood Count 4.91 10^3/uL (3.29-11.43)
[2025-08-25 07:53] LABS: Alanine Aminotransferase 18 U/L (0-41); Albumin Level 4.3 g/dL (3.5-5.2); Alkaline Phosphatase 93 U/L (40-130); Anion Gap 14.2 (5-19); Aspartate Amino Transferase 23 U/L (0-40); Blood Urea Nitrogen 12 mg/dL (8-23); Calcium 8.8 mg/dL (8.5-10.5); Carbon Dioxide 26 mmol/L (22-29); Chloride 106 mmol/L (98-107); Globulin 1.9 g/dL (1.3-4.6); Glucose 100 mg/dL (65-115); Osmolality Calculated 294 mOsm/kg (285-295); Potassium 4.2 mmol/L (3.5-5.1); Sodium 142 mmol/L (136-145); Total Protein 6.2 g/dL (6.6-8.7)
[2025-08-25 10:03] LABS: Thyroid Stimulating Hormone 1.02 uIU/mL (0.27-4.20)
--- NOTE | 2025-08-25 12:00 | CTR_ITS ---
PROCEDURE INFORMATION: Exam: CT Chest With Contrast; Diagnostic Exam date and time: 08/25/2025 12:06 PM Age: 70 years old Clinical indication: Condition or disease; Lung condition and disease; Cancer of the lung; Unspecified; Primary cancer: Lung cancer; Prior surgery; Surgery date: 6+ months; Surgery type: Port, right upper lobe; Additional info: Restaging TECHNIQUE: Imaging protocol: Diagnostic computed tomography of the chest with contrast. Radiation optimization: All CT scans at this facility use at least one of these dose optimization techniques: automated exposure control; mA and/or kV adjustment per patient size (includes targeted exams where dose is matched to clinical indication); or iterative reconstruction. Contrast material: OMNI 350; Contrast volume: 100 ml; Contrast route: INTRAVENOUS (IV); COMPARISON: CT chest w con* [id number] 05/21/2025 9:33 AM RADIATION DOSE METRICS: Total DLP (mGy-cm): 395.42 FINDINGS: Tubes, catheters and devices: A right internal jugular injection port is identified, newly positioned from the prior study. The tip of the catheter extends within the superior vena cava to the level of the azygos vein. Thyroid: A stable 13.7 mm diameter right thyroid nodule is present. Lungs: Inflammatory consolidation in the right lower lobe is identified with some cystic changes, slightly improved as compared to the prior examination. Minimal non consolidative inflammation is seen in the adjacent inferior right middle lobe, slightly improved from prior study. Consolidation is also noted in the right hilar region, slightly improved as compared to the prior study as well. The lungs are otherwise unremarkable and otherwise stable. Pleural spaces: A stable right pleural effusion is present. Heart: The heart size is within normal limits. There is no pericardial effusion. There are coronary artery atherosclerotic changes present. Lymph nodes: A precarinal lymph node is identified, today measuring 8.1 mm in short axis compared with 10.9 mm on the prior study. A mediastinal right infrahilar 22 mm diameter somewhat necrotic appearing lymph node present on the prior study has decreased to short axis of 9.4 mm. No new mediastinal lymphadenopathy is present. Vasculature: Unremarkable. No aortic aneurysm. Kidneys: A stable cortical cyst is seen in the mid anterior right renal cortex, measuring approximately 12 mm in diameter. Bones/joints: Unremarkable. No acute fracture. Soft tissues: No adrenal lesions are present. There is stable mild hepatic steatosis. The abdominal viscera are otherwise unremarkable. CT/CT chest w con* [id number] IMPRESSION: 1. Stable right pleural effusion. 2. Interval decrease in right hilar mass/consolidation and mediastinal lymphadenopathy with probable persistent postobstructive cavitating pneumonia in the right lower lobe, slightly improved from prior study. 3. Stable 13.7 mm right thyroid nodule. No follow-up is recommended. 4. Interval placement of an injection port via the right internal jugular vein, appropriately positioned.
[2025-08-25] MEDS: iohexol 350 mg/mL 500 mL Btl (per mL) IV (12:16)
[2025-08-25] MEDS: durvalumab 1,500 MG in sodium chloride 0.9% 250 ML 280 MG IV (12:59)
[2025-08-25 14:52] VITALS: BP 117/63; PULSE 80; TEMP 36.1; O2SAT 93
== END 2025-08-25 23:59 | disposition home or self-care (01) ==
PROVIDERS: Nurse Practitioner Family; PCP Family Medicine; Visit Provider Radiology Radiation Oncology
DX: Z51.12 Encounter for antineoplastic immunotherapy (principal); C34.2 Malignant neoplasm of middle lobe, bronchus or lung; R63.4 Abnormal weight loss; J90 Pleural effusion, not elsewhere classified; R59.0 Localized enlarged lymph nodes; E04.1 Nontoxic single thyroid nodule; I25.10 Atherosclerotic heart disease of native coronary artery without angina pectoris; N28.1 Cyst of kidney, acquired; K76.0 Fatty (change of) liver, not elsewhere classified; Z96.89 Presence of other specified functional implants; Z85.118 Personal history of other malignant neoplasm of bronchus and lung; Z95.828 Presence of other vascular implants and grafts; Z90.2 Acquired absence of lung [part of]; Z79.899 Other long term (current) drug therapy
CPT/HCPCS: 36415; 71260; 80053; 84443; 85025; 96413; 99215; J7050; J9173

== ENCOUNTER 2025-09-01 08:05 | Outpatient (CLI) | payer MEDICARE, BC, SELFPAY ==
--- NOTE | 2025-09-01 08:20 | NMCV_ITS ---
NM han perf SPECT r/s* [id number] Dat Sims Age: 70 Gender: M : 1955 Exam Date: 09/01/2025 09:11 Ordering Phys: Rhett Cuevas MD Technologist: LUIS ANGEL Barnes Exam Location: [facility] Indications: CP STRESS TEST Please see separate stress test report in [facility] for full findings IMAGE PROTOCOL Rest/Stress 1 Lexiscan Day Radiopharmaceutical Dose (mCi) Administration Site Administered by Rest: Tc-99m 10.3 IV Leti Iverson, HOSPITALITY RECRUITER Sestamibi Stress:Tc-99m 32.5 IV Leti Shabazzgle, HOSPITALITY RECRUITER Sestamibi Rest: 01-Sep-2025 60 Discovery 630 Stress: 01-Sep-2025 30 Discovery 630 0.4mg Lexiscan. Images obtained in supine and prone position. SPECT RESULTS Technical Quality: Good Raw Data Analysis: Normal Image Corrections: No attenuation or motion correction applied Summed Stress Score: 0 Summed Rest Score: 1 Summed Difference Score: 0 PERFUSION FINDINGS There is a small area of mildly reduced tracer counts in the apex on the stress images which is reversible on the resting images. FUNCTIONAL RESULTS (calculated via Gated SPECT) Stress Image LV EF (%): 69 Stress EDV (mL):78 TID: 1.61 Stress ESV (mL):24 FUNCTIONAL FINDINGS: There is normal global left ventricular systolic function with ejection fraction of 69%. IMPRESSIONS 1. Small area of mild ischemia in the apex. 2. Normal global left ventricular systolic function, EF 69%. Lawrence Sanches MD, FACC (Electronically Signed) Final Date: 01 September 2025 13:04 S
--- NOTE | 2025-09-01 08:20 | ECG_ITS ---
Stackdriver Test Date: 2025-09-01 Pat Name: Dat Sims Department: Room: Gender: Male Imaging Manager: : 1955 Requested By: Rhett Gonzales Order Number: [id number] Swapnil MD: Lawrence Sanches M.D. Interpretive Statements procedure: A total of 0.4 mg of Lexiscan was infused over 20 seconds. The stress phase was continued for a total of 5 minutes. Sestamibi was injected 20 seconds after the Lexiscan infusion. Findings: The patient's resting blood pressure was 144/74 mmHg with a heart rate of 74 bpm. The blood pressure decreased to 112/58 mmHg and the heart rate increased to 97 bpm after the Lexiscan injection. At the end of recovery the patient's blood pressure was 113/63 mmHg with a heart rate of 89 bpm. Resting EKG showed normal sinus rhythm with a possible old anterior septal myocardial infarction. There were no ST or T wave abnormalities or arrhythmias during the stress test. Conclusion: 1. Normal EKG response to Lexiscan infusion 2. No Lexiscan induced chest pain or cardiac arrhythmia. 3. Normal blood pressure and heart rate response. 4. Nuclear myocardial perfusion scan pending; see separate report. Electronically Signed On 09-01-2025 13:07:40 MEDICAL BILLER CODER by Lawrence Sanches M.D. [email or web address]
[2025-09-01 08:21] VITALS: BMI 25.8
[2025-09-01 09:55] VITALS: BP 113/63; PULSE 90
== END 2025-09-01 08:06 | disposition home or self-care (01) ==
LOC: CDL 08:06
PROVIDERS: PCP Family Medicine; Visit Provider Family Medicine
DX: R07.9 Chest pain, unspecified (principal); I25.9 Chronic ischemic heart disease, unspecified
CPT/HCPCS: 36415; 78452; 93017; 96374; A9500; J2785

== ENCOUNTER → 2025-09-03 14:00 | Outpatient (BNVA) | payer MEDICARE, BC, SELFPAY | PROVIDERS: PCP Family Medicine; Visit Provider Internal Medicine Cardiovascular Disease | DX: E78.5 Hyperlipidemia, unspecified (principal); Z01.810 Encounter for preprocedural cardiovascular examination; I10 Essential (primary) hypertension; R94.39 Abnormal result of other cardiovascular function study; F17.210 Nicotine dependence, cigarettes, uncomplicated; R06.02 Shortness of breath; R58 Hemorrhage, not elsewhere classified | CPT/HCPCS: 36415; 80048; 85025; 85610; 99204 ==

== ENCOUNTER 2025-09-08 09:53 | Oncology outpatient (recurring) (ONCR) | payer MEDICARE, BC, SELFPAY ==
[2025-09-08 10:16] LABS: Hematocrit 38.2 % (37-53); Hemoglobin 13.20 g/dL (11.27-16.99); Mean Corpuscular HGB Conc 34.6 g/dL (30-55); Mean Corpuscular Hemoglobin 38.3 pg (27-33); Mean Corpuscular Volume 110.7 fl (82-101); Nucleated Red Blood Cells % 0 %; Platelet Count 145 10^3/cmm (157-399); Red Blood Count 3.45 10^6/uL (3.85-5.65); White Blood Count 6.40 10^3/uL (3.29-11.43)
[2025-09-08 10:35] LABS: Alanine Aminotransferase 21 U/L (0-41); Albumin Level 4.5 g/dL (3.5-5.2); Alkaline Phosphatase 104 U/L (40-130); Anion Gap 19.2 (5-19); Aspartate Amino Transferase 29 U/L (0-40); Blood Urea Nitrogen 13 mg/dL (8-23); Calcium 9.1 mg/dL (8.5-10.5); Carbon Dioxide 22 mmol/L (22-29); Chloride 102 mmol/L (98-107); Globulin 2.0 g/dL (1.3-4.6); Glucose 99 mg/dL (65-115); Osmolality Calculated 288 mOsm/kg (285-295); Potassium 4.2 mmol/L (3.5-5.1); Sodium 139 mmol/L (136-145); Total Protein 6.5 g/dL (6.6-8.7)
[2025-09-08 11:26] LABS: Hepatitis B Surface Antigen Non-Reactive (Nonreactive)
== END 2025-09-20 23:59 | disposition home or self-care (01) ==
PROVIDERS: Nurse Practitioner Family; PCP Family Medicine; Visit Provider Radiology Radiation Oncology
DX: Z53.9 Procedure and treatment not carried out, unspecified reason; C34.2 Malignant neoplasm of middle lobe, bronchus or lung; F17.210 Nicotine dependence, cigarettes, uncomplicated; Z79.899 Other long term (current) drug therapy; Z90.2 Acquired absence of lung [part of]; Z95.828 Presence of other vascular implants and grafts; Z85.118 Personal history of other malignant neoplasm of bronchus and lung
CPT/HCPCS: 36591; 80053; 85025; 86705; 86706; 87340; 99213

== ENCOUNTER 2025-09-10 08:42 | Outpatient (CLI) | payer MEDICARE, BC, SELFPAY ==
[2025-09-10] VITALS (20 sets, daily range): BP systolic 90–135; BP diastolic 58–77; PULSE 69–92; RESP 4–22; TEMP 35.9–36.6; O2SAT 65–97; BMI 25.4
--- NOTE | 2025-09-10 09:00 | XACV_ITS ---
Exam Room: 2 Ht: 175 cm Wt: 78 kg BSA: 1.96 m2 Gender: Male : 1955 Any Known Allergies: No known allergies Exam Priority: Routine Procedure(s): Procedure Description: Diagnostic procedure Procedure Description: Left Heart Catheterization Procedure Description: Left ventriculography Procedure Description: Coronary Angiography Diagnostic Cath Status: Elective Diagnostic Findings * INDICATION: Dyspnea on exertion/ abnormal stress test. * LAD and left circumflex arteries have separate ostia. * Left Anterior Descending has proximal vessel calcification without significant stenosis. * Circumflex is a calcified vessel. No significant stenosis. * Mid Right Coronary Artery: minimal 30% stenosis, HARJIT: 3 flow. * Coronary angiography shows right dominance. Conclusions 1. There is minimal coronary artery disease with one vessel disease. 2. Normal left ventricular systolic function. Ejection fraction of 65%. Recommendations * Aggressive medical therapy. * Outpatient cardiology follow up in 2-4 weeks. Interventional RX Recommendation: medical therapy and/or counseling Diagnostic RX Recommendation: medical therapy and/or counseling Anticoagulation: Heparin Ventriculography Ejection Fraction: 65.0 % Pressures Phase:Rest AO : 90 / 60 ( 75 ) @ 10:43:00 AM 106 / 53 ( 76 ) @ 10:48:00 AM 108 / 53 ( 77 ) @ 10:48:00 AM 113 / 51 ( 80 ) @ 10:48:00 AM LV : 117 / -6 / 9 @ 10:47:00 AM 111 / -3 / 13 @ 10:48:00 AM 109 / -3 / 12 @ 10:48:00 AM Valves Phase:DefaultPhase AV : 2.0 @ 10:54:06 AM AV Mean Gradient: 10.0 @ 10:54:06 AM Clinical Evaluation EBL: 5mL-10mL Procedural Details Procedure Consent Obtained. Current Diagnosis : Chest Pain. Pre-Procedure Time Out. Identified patient by full name and date of as verbalized by the patient/guarantor. Does the consent match the physician's order: Yes. Accurate & Complete Informed Consent: Yes. Inpatient/Outpatient History & Physical on Chart: Yes. If H&P is completed, is and addenduem needed: No; If yes, is the addendum complete: N/A. Visualize and Verify Site with Patient/Guarantor: N/A. Relevant Radiology Images available: Yes. Pre-op teaching completed and patient verbalized understanding. The risks, benefits, and alternatives of sedation and/or procedure were discussed by physician. The patient agrees to continue. Procedure started. [facility] Clinical Fraility Score: 3: Managing Well. Civil Engineer Indications: Suspected CAD. Chest Pain Symptom Assessment: Typical Angina Symptoms. Correct patient, site and procedure confirmed by cath team. Current diagnosis: Chest Pain. PERRLA. Strong, equal hand mill hand bilaterally. Lungs clear x 5 lobes. IV Fluids: 0.9% NaCl at KVO. 0 mL infused prior to cardiac cath lab radiology technologist. Pre Procedural Pulses: bilateral dorsalis pedis was 1+. Pre Procedural Pulses: bilateral posterior tibial was 1+. Pre Procedural Pulses: bilateral radial was 3+. Oxygen started at 2liters/min via nasal canula. right groin was prepped with chloroprep then draped in the usual sterile fashion. right radial was prepped with chloroprep then draped in the usual sterile fashion. IV site on arrival:Right upper chest gerri cath. Baseline sample Acquired. HR: 60 BPM. Physician arrived. Physician scrubbed in. Immediate Pre-Procedure Time Out. Correct Patient: Yes; Correct Procedure: Yes; Correct Site: Yes; Correct Patient Position: Yes; Correct Supplies: Yes; Dried Flammable Prep: Yes; Blood Products Available: N/A;. Lidocaine 1% infiltrated to the right radial. Ultrasound being used to obtain arterial access. Arterial access obtained. Lidocaine 1% infiltrated to the right radial. A 5 pakistani TIG catheter in over wire. Multiple views taken of left coronary artery. Catheter redirected to the RCA. Multiple views taken of right coronary artery. Catheter removed over the exchange wire. A 5 pakistani Angled Pig catheter in over wire. EDP Sample taken: LV 117/-7,9; HR: 71 BPM; SpO2: 97%. LV gram performed in AJ @ 10 mL/second for a total of 30 mL. EDP Sample taken: LV 111/-4,13; HR: 69 BPM; SpO2: 97%. Pullback taken: LV 109/-4,12; AO 106/53(76); Mean: 10mmHg, Peak to Peak: 2mmHg, SEP: 15sec/min; HR: 68 BPM; SpO2: 97%. Catheter removed over the standard wire. A TR Band was successful obtaining hemostatsis at the Right Radial artery insertion site. Vital chart was stopped. Post Procedure: Pulses reassessed and unchanged. PERRLA. Strong, equal hand mill hand bilaterally. No VTE prophylaxis required. Medication's Wasted: Lidocaine 1% = 16 mL. Medication's Wasted: Nitro = 49.8 mcg. Medication's Wasted: Heparin = 1000 units. Medication's Wasted: Other = Fentanyl 50 mcg. Total IV fluids: 50 mL. Post-op diagnosis: Non-obstructive CAD. Complications: None. Estimated blood loss: 5mL-10mL. Responsiveness - Normal response to verbal stimuli; alert and oriented, PERRLA. Airway - Unaffected, no intervention required; spontaneous ventilation. Circulation: W/N/L, pulses unchanged. Nausea/Vomiting: No. Procedure completed. Patient transferred by wheelchair to 1st floor. Access Site Site: Right Radial artery Sheath Size: 6 Fr Hemostasis Method: TR Band Hemostasis Success: Successful Procedure Medications Start: 10:33 AM Stop: 10:33 AM Medication: Versed Amount: 1 mg Route: I.V. Start: 10:33 AM Stop: 10:33 AM Medication: Fentanyl Amount: 50 mcg Route: I.V. Start: 10:37 AM Stop: 10:37 AM Medication: Versed Amount: 1 mg Route: I.V. Start: 10:38 AM Stop: 10:38 AM Medication: Nitrogylcerin Amount: 200 mcg Route: I.A. Start: 10:40 AM Stop: 10:40 AM Medication: Heparin Amount: 5000 units Route: I.V. I, the attending physician, have reviewed and verified all procedure medications. Yes, all medications given per verbal order History/Risk Factors Hypertension: Yes Dyslipidemia: Yes Peripheral Arterial Disease (PAD): Yes Myocardial Infarction (MS): No Obesity: No Renal Disease: No Tobacco Use: Current/Recent(w/in 1 year) Prior Interventions PCI: No CABG: No Valve Surgery: No Report Signatures Finalized by Rodolfo Garza MD on 09/18/2025 10:24 AM
--- NOTE | 2025-09-10 15:10 | PC.NURSE ---
Patient discharged to home. Instruction provided regarding follow up appointments and site care. Patient verbalized complete understanding. No new medications. Dressing to right wrist remains c,d,i without s/s of bleeding or hematoma formation observed. Patient denies pain or needs. Patient taken by wheelchair to private vehicle. by side.
--- NOTE | 2025-09-18 10:15 | W.PM.OPSUD ---
Surgery/Procedure H&P Update DATE OF PROCEDURE: September 10, 2025 DATE H&P PERFORMED: 09/10/25 H&P UPDATE INFORMATION: I have reviewed H&P completed within last 30 days, I have examined patient prior to procedure and No changes to prior documentation PREOP DIAGNOSIS: Dyspnea on exertion/ abnormal stress test PRIMARY INDICATION FOR PROCEDURE: Dyspnea on exertion/ abnormal stress test PLANNED PROCEDURE: Operation Date: 09/10/25 10:00 Proposed Procedures p Cardiac Catheterization - C w/wo LV & Coros(Left) - Rodolfo Garza M.D Possible percutaneous coronary intervention PATIENT REASSESSED PRIOR TO SEDATION, WITH NO CHANGE NOTED: Yes PHYSICAL EXAM: alert, oriented x 3, clear to auscultation bilaterally and regular rate & rhythm AIRWAY EVAL/ANESTHESIA PLAN: normal airway, ASA III, Local Anesthesia, Risks, benefits & alternatives of sedation and/or procedure discussed and Patient agrees to continue as planned ADDITIONAL INFORMATION: Moderate sedation
== END 2025-09-10 15:13 | disposition home or self-care (01) ==
LOC: CCL 11:17 → CSU 11:18
PROVIDERS: PCP Family Medicine; Visit Provider Internal Medicine
DX: I25.10 Atherosclerotic heart disease of native coronary artery without angina pectoris (principal); I10 Essential (primary) hypertension; E78.5 Hyperlipidemia, unspecified; I73.9 Peripheral vascular disease, unspecified; Z85.118 Personal history of other malignant neoplasm of bronchus and lung; Z79.82 Long term (current) use of aspirin; F17.210 Nicotine dependence, cigarettes, uncomplicated
CPT/HCPCS: 36415; 93458; 99152; 99153; C1769; C1887; C1894; J1644; J2250; J3010; J3490; J7030; J9999; Q0163; Q9967

== ENCOUNTER 2025-09-21 13:48 | Day surgery (SDC) | payer MEDICARE, BC, SELFPAY ==
[2025-09-21] VITALS (11 sets, daily range): BP systolic 111–146; BP diastolic 67–88; PULSE 76–87; RESP 16–23; TEMP 36.1–36.4; O2SAT 90–100; BMI 25.5
--- NOTE | 2025-09-21 06:47 | XR_ITS ---
WS: [id number] Exam: XR lumbar spine 1V [id number] Date/Time of Exam: 09/21/2025 6:47 AM Reason For Exam: or pic, decompression AP C-arm images of the lower lumbar spine are submitted. Images were obtained for preop localization purposes.
--- NOTE | 2025-09-21 14:35 | ANES.PREANE2 ---
Pre-Anesthetic Assessment Height/Weight: Height 1.75 m Preop Diagnosis: Lumbar stenosis neurogenic claudication Operation Date: 09/21/25 15:40 Proposed Procedures p Lumbar Spine Decompression(Not Applicable) - Soto Montenegro DO Familial anesthetic complications: None Was Beta Payam taken within 24 hours: N/A Was Clonidine taken within 24 hours: N/A Last intake: > 8 hrs Social Tobacco and No alcohol Exam alert, oriented x 3, clear to auscultation bilaterally and regular rate & rhythm Airway Mallampati: Class I Dentition: false Pulmonary Chronic Obstructive Pulmonary Disease Lung cancer s/ p chemo CV/HEM Coronary Artery Disease and Hypertension Anesthetic Plan ASA status: 4 Anesthesia: General Risk of > 500 ml blood loss (7ml/kg in children): No Medications/Allergies Home Medications ?Medication ?Instructions ?Recorded ?Confirmed ?Last Taken ?Type aspirin 81 mg tablet,delayed 81 mg PO BEDTIME 10/21/24 09/16/25 09/09/25 History release (Adult Aspirin Regimen) carvedilol 3.125 mg tablet 3.125 mg PO BEDTIME 06/01/25 09/16/25 09/20/25 History rosuvastatin 5 mg tablet 5 mg PO BEDTIME 06/01/25 09/16/25 09/20/25 History Allergies Allergy/AdvReac Type Severity Reaction Status Date / Time No Known Allergies Allergy Verified 09/16/25 11:34 [facility] Anesthesia Medical History Peripheral arterial disease Hx of cancer of lung Hypertension Hyperlipidemia Lumbar disc disease Surgical History S/P lobectomy of lung right upper lobe History of knee surgery History of carpal tunnel surgery History of atherectomy both legs and stomach H/O neck surgery S/P hip replacement Social History Smoking and tobacco/nicotine status: current every day tobacco/nicotine user cigarettes Packs smoked per day: 1 Years cigarettes smoked: 53 [ Other cigarette details: 2ppd when working. 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
--- NOTE | 2025-09-21 14:59 | W.PM.OPSFHP ---
Same Day Surgery H&P Indication for Procedure/HPI DATE OF PROCEDURE: September 21, 2025 CHIEF COMPLAINT/INDICATIONFOR SURGICAL PROCEDURE: Back pain and weakness in the legs PREOP DIAGNOSIS: Lumbar stenosis neurogenic claudication PLANNED PROCEDURE: Operation Date: 09/21/25 15:40 Proposed Procedures p Lumbar Spine Decompression(Not Applicable) - Soto Montenegro, DO Medications/Allergies* Home Medications ?Medication ?Instructions ?Recorded ?Confirmed ?Type aspirin 81 mg tablet,delayed 81 mg PO BEDTIME 10/21/24 09/16/25 History release (Adult Aspirin Regimen) carvedilol 3.125 mg tablet 3.125 mg PO BEDTIME 06/01/25 09/16/25 History rosuvastatin 5 mg tablet 5 mg PO BEDTIME 06/01/25 09/16/25 History Allergies/Adverse Reactions Allergy/AdvReac Type Severity Reaction Status Date / Time No Known Allergies Allergy Verified 09/16/25 11:34 Current Medications: Generic Name Dose Route Start Last Admin Trade Name Freq PRN Reason Stop Dose Admin Sodium Chloride 1,000 mls @ 30 mls/hr 09/21/25 14:00 09/21/25 14:36 Sodium Chloride 0.9% IV 09/22/25 13:59 30 mls/hr .Q24H HALIE Administration Pertinent History/Comorbid Conditions* Medical History (Updated 09/03/25 @ 15:16 by Lawrence Sanches MD) Peripheral arterial disease Hx of cancer of lung Hypertension Hyperlipidemia Lumbar disc disease Surgical History (Updated 05/18/25 @ 08:02 by Greg Hammonds MD) S/P lobectomy of lung right upper lobe History of knee surgery History of carpal tunnel surgery History of atherectomy both legs and stomach H/O neck surgery S/P hip replacement Social History Smoking and tobacco/nicotine status: current every day tobacco/nicotine user cigarettes Packs smoked per day: 1 Years cigarettes smoked: 53 [ Other cigarette details: 2ppd when working. 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
[2025-09-21] MEDS: ceFAZolin 2,000 mg SDV 2000 MG IVP (15:17)
[2025-09-21] MEDS: lidocaine-epi 1% PF 1:200,000 30 mL SDV INJECTION (15:50)
--- NOTE | 2025-09-21 16:40 | PM.OP ---
Operative Report Date of procedure: September 21, 2025 Pre-op diagnosis: Lumbar stenosis neurogenic claudication Post-op diagnosis: same Procedure done: 1. L3/4 laminectomy with partial facetectomy 2. L4/5 laminectomy with partial facetectomy Surgeon: Soto Montenegro DO Estimated blood loss (mL): 15 Procedure: 1. L3/4 laminectomy with partial facetectomy 2. L4/5 laminectomy with partial facetectomy Patient is brought to the operative suite. After undergoing anesthesia they are placed in the prone position. All areas of impingement are well padded. Patient is then prepped and draped in the normal sterile fashion. A skin incision is made over the L3/4 level. This is confirmed under c-arm guidance. A series of dilators are passed and the tubular retractor is docked on the L3 lamina. A bovie is used to clear the soft tissue off the lamina and the L 3/43 facet joint. A high speed sal is then used to perform the laminectomy and take down the medial aspect of the L3/4 facet joint. A kerrison rongeure was then used to take down the remaining lamina and smooth the edge of the laminectomy up to the point where the ligamentum flavum attaches. Attention was then brought to the medial aspect of the facet joint. The remaining medial aspect of the superior and inferior aspect of the facet joint were taken down with the kerrison from the pedicle of L3 to L 4. The facet joint had significant hypertrophy. Attention was then brought to the Ligamentum Flavum. The ligament was taken down from the lamina of L3 to L4 and out medially to the remaining facet joint. The ligament was thick. The dura was then exposed. The dura was in good repair. The L3 nerve was then traced with a curette out the L3/4 foramen and found to be adequately decompressed. The L4 nerve was traced with a curette around the L4 pedicle. The lateral recess was opened with a kerrison helping to further decompress the L4 nerve. Wound is then irrigated copiously with saline and surgiflo is used to stop any bleeding. The tubular retractor is removed A skin incision is made over the L4/5 level. This is confirmed under c-arm guidance. A series of dilators are passed and the tubular retractor is docked on the L4 lamina. A bovie is used to clear the soft tissue off the lamina and the L 4/5 facet joint. A high speed sal is then used to perform the laminectomy and take down the medial aspect of the L 4/5 facet joint. A kerrison rongeure was then used to take down the remaining lamina and smooth the edge of the laminectomy up to the point where the ligamentum flavum attaches. Attention was then brought to the medial aspect of the facet joint. The remaining medial aspect of the superior and inferior aspect of the facet joint were taken down with the kerrison from the pedicle of L4 to L 5. The facet joint had significant hypertrophy. Attention was then brought to the Ligamentum Flavum. The ligament was taken down from the lamina of L4 to L5 and out medially to the remaining facet joint. The ligament was thick. The dura was then exposed. The dura was in good repair. The L4 nerve was then traced with a curette out the L4/5 foramen and found to be adequately decompressed. The L5 nerve was traced with a curette around the L5 pedicle. The lateral recess was opened with a kerrison helping to further decompress the L5 nerve. Wound is then irrigated copiously with saline and surgiflo is used to stop any bleeding. The tubular retractor is removed and the wound is closed with vicryl and monocryl suture. Steri strips were applied. A sterile dressing is then placed. Patient was then placed in the supine position and transferred to the PACU in stable condition.
--- NOTE | 2025-09-21 18:00 | ANE.PACU2 ---
Inpatient post-anesthesia follow up: Airway intact: Yes Vital signs: Temperature 97.6 F Pulse Rate 76 Respiratory Rate 18 Blood Pressure 132/77 Pulse Oximetry 92 Oxygen Delivery Me thod Room Air Oxygen Flow Rate 8 Fraction of Inspir ed Oxygen Hydration adequate: Yes Nausea and vomiting: No Pain level: 1 Mental status: Baseline
== END 2025-09-21 18:00 | disposition home or self-care (01) ==
PROVIDERS: PCP Family Medicine; Visit Provider Orthopaedic Surgery
PROC: (CPT 63005; principal; 2025-09-21 15:30)
DX: M48.062 Spinal stenosis, lumbar region with neurogenic claudication (principal); Z79.82 Long term (current) use of aspirin; Z85.118 Personal history of other malignant neoplasm of bronchus and lung; I10 Essential (primary) hypertension; E78.5 Hyperlipidemia, unspecified; I73.9 Peripheral vascular disease, unspecified; F17.210 Nicotine dependence, cigarettes, uncomplicated; J44.9 Chronic obstructive pulmonary disease, unspecified; I25.10 Atherosclerotic heart disease of native coronary artery without angina pectoris
CPT/HCPCS: 63047; 63048; 72020; 76000; A4649; J0690; J1100; J2405; J2704; J2710; J3010; J3490; J7030; J9999

== ENCOUNTER 2025-09-24 08:37 | Emergency (ER) | payer MEDICARE, BC, SELFPAY ==
[2025-09-24 08:38] VITALS: BP 101/55; PULSE 85; RESP 18; TEMP 36.8; O2SAT 90; BMI 25.8
--- NOTE | 2025-09-24 08:52 | ED_ITS ---
HPI - Back Pain/Injury 2 General: Chief Complaint: Back Pain/Injury Stated Complaint: post op back pain Time Seen by Provider: 09/24/25 08:38 History of Present Illness: 70-year-old male presents emergency room complaining of low back pain. He is 5 days postop from an L4-5 laminectomy facetectomy. He has a follow-up appointment today with Dr. Pierson but presented to the emergency room and states he cannot tolerate the pain. As long as he states still he is no significant pain but with any movement he has severe pain and he has been using hydrocodone for it. No falls or injury since his surgery. No saddle paresthesias and no urinary retention fecal incontinence no radicular symptoms. Associated symptoms: Deny abdominal pain, chills, dysuria, fever(s) or urinary urgency Related Data Home Medications ?Medication ?Instructions ?Recorded ?Confirmed aspirin 81 mg tablet,delayed 81 mg PO BEDTIME 10/21/24 09/16/25 release (Adult Aspirin Regimen) Held on 09/21/25. Instructions: Resume on 09/23/25. carvedilol 3.125 mg tablet 3.125 mg PO BEDTIME 5 09/16/25 rosuvastatin 5 mg tablet 5 mg PO BEDTIME 06/01/25 Previous Rx's ?Medication ?Instructions ?Recorded baclofen 5 mg tablet 5 mg PO Q8H #14 tabs 5 oxycodone-acetaminophen 5 mg-325 1 tab PO Q6H PRN pain #12 tabs 09/24/25 mg tablet prednisone 20 mg tablet 20 mg PO TID #15 tabs Allergies Allergy/AdvReac Type Severity Reaction Status Date / Time No Known Allergies Allergy Verified 09/24/25 07:36 Review of Systems 2 Const: Denies: fever(s) or chills Card: Denies: chest pain Resp: Denies: dyspnea GI: Denies: abdominal pain : Denies: dysuria, urinary frequency or urinary urgency Musc: Denies: neck pain or back pain Skin/Breast: Denies: rash PFSH ED 2 PFSH: Medical History Peripheral arterial disease Hx of cancer of lung Hypertension Hyperlipidemia Lumbar disc disease Surgical History S/P lobectomy of lung right upper lobe History of knee surgery History of carpal tunnel surgery History of atherectomy both legs and stomach H/O neck surgery S/P hip replacement Social History Smoking and tobacco/nicotine status: current every day tobacco/nicotine user cigarettes Packs smoked per day: 1 Years cigarettes smoked: 53 [ Other cigarette details: 2ppd when working. 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 Physical Exam 2 Const: GENERAL APPEARANCE: cooperative ORIENTATION/CONSCIOUSNESS: Yes awake, Yes oriented to person, Yes oriented to place and Yes oriented to time HENMT: COMMON NORMALS: normocephalic, atraumatic and hearing grossly normal bilaterally HEAD & SCALP: normocephalic and atraumatic Resp: COMMON NORMALS: normal respiratory effort, No retractions and No use of accessory muscles AUSCULTATION: wheezes (Mild) Cardio: COMMON NORMALS: regular rate, regular rhythm and No murmurs present (Cardio) RATE: regular rate RHYTHM: regular rhythm GI: COMMON NORMALS: Soft to palpation and No hepatosplenomegaly present A USCULTATION: Yes normoactive bowel sounds PALPATION: Yes Soft to palpation, No Tenderness to palpation present (GI), No Guarding due to palpation present (GI) and Yes No hepatosplenomegaly present Back/Pelvis: OTHER: No sign of drainage or infection at the incision Extremity: COMMON NORMALS: normal to inspection, capillary refill normal, no clubbing, cyanosis or edema, no calf tenderness and no pedal edema Neuro: SENSORIUM/ORIENTATION: Yes oriented to person, Yes oriented to place and Yes oriented to time OTHER: Sensation lower extremities normal, no saddle paresthesias. Dorsal and plantarflexion strength 5/5. Skin: COMMON NORMALS: no rashes or lesions noted GENERAL SKIN EXAM: no rashes or lesions noted Course 2 Vital Signs: Vital signs: Vital Signs Temperature 98.2 F 09/24/25 08:38 Pulse Rate 76 09/24/25 10:59 Respiratory Rate 16 09/24/25 10:59 Blood Pressure 110/66 09/24/25 10:59 Pulse Oximetry 97 09/24/25 10:59 Oxygen Delivery Me thod Nasal Cannula 09/24/25 08:38 Oxygen Flow Rate 2 09/24/25 10:19 MDM - Back Pain/Injury Medical Decision Making Medical decision making Social determinants: None I reviewed the patient's medical record. I reviewed the patient's current home meds. Alternate historians: Differential diagnosis: Cauda equina syndrome postlaminectomy syndrome exacerbation of chronic low back pain Lab Review: Labs reviewed CBC no significant abnormality Mild thrombocytopenia. ABG shows chronic hypoxia well compensated for. His pCO2 is 41 his pO2 is 49. Carbon dioxide on serum testing is 30. Creatinine is normal electrolytes liver functions normal. Imaging: Chest x-ray with left lower pleural effusion chronic patient has history of previous lobectomy Assessment of risk Level of risk: Low/moderate Hospitalization considerations: No need for hospitalization at this time. Workup to include evaluation for infection and managing current symptoms Reexamination: Improved with medications given. Lung sounds unchanged Assessment and plan: Patient has also had a curious Tedral will discharge home on baclofen steroid taper and change from hydrocodone to oxycodone I did contact Dr. Pierson that they will follow-up with the patient as an outpatient. Reviewed red flag symptoms with the patient. Additionally patient does require chronic oxygen Home O2 eval done and he was prescribed 2 L/min he should follow-up with his primary care doctor within the week he is not currently on any inhaled medications but may benefit from them Labs 09/24/25 09:05 09/24/25 09:05 Radiology Impressions Chest X-Ray 09/24/25 08:52 IMPRESSION: 1. Moderate sized RIGHT basal pleural effusion with compressive atelectasis of the middle and lower lobes of the RIGHT lung. Laboratory Results WBC 7.23 10^3/uL (3.29-11.43) 09/24/25 09:05 RBC 3.01 10^6/uL (3.85-5.65) L 09/24/25 09:05 Hgb 11.40 g/dL (11.27-16.99) 09/24/25 09:05 Hct 33.7 % (37-53) L 09/24/25 09:05 MCV 112.0 fl (82-101) H 09/24/25 09:05 MCH 37.9 pg (27-33) H 09/24/25 09:05 MCHC 33.8 g/dL (30-55) 09/24/25 09:05 RDW 14.7 % (12.1-15.1) 09/24/25 09:05 Plt Count 116 10^3/cmm (157-399) L 09/24/25 09:05 MPV 8.3 fL (7.4-10.4) 09/24/25 09:05 Neut % (Auto) 76.8 % 09/24/25 09:05 Lymph % (Auto) 7.2 % 09/24/25 09:05 Haywood % (Auto) 11.1 % 09/24/25 09:05 Eos % (Auto) 3.3 % 09/24/25 09:05 Baso % (Auto) 1.0 % 09/24/25 09:05 Neut # (Auto) 5.56 10^3/uL (1.8-7.7) 09/24/25 09:05 Lymph # (Auto) 0.5 10^3/uL (0.8-4.8) L 09/24/25 09:05 Haywood # (Auto) 0.8 10^3/uL (0.2-0.9) 09/24/25 09:05 Eos # (Auto) 0.2 10^3/uL (0.0-0.8) 09/24/25 09:05 Baso # (Auto) 0.1 10^3/uL (0.0-0.1) 09/24/25 09:05 Nucleated RBC % (auto) 0 % 09/24/25 09:05 Nucleated RBCs # 0.0 /100WBC 09/24/25 09:05 Specimen Type Arterial 09/24/25 09:10 Sample Site Radial, right 09/24/25 09:10 ABG pH 7.44 (7.35-7.45) 09/24/25 09:10 ABG pCO2 41.0 mmHg (35-45) 09/24/25 09:10 ABG pO2 49.6 mmHg (80.0-100.0) L 09/24/25 09:10 ABG PO2/FiO2 Ratio 236 09/24/25 09:10 ABG HCO3 28.0 mmol/L (22-26) H 09/24/25 09:10 ABG O2 Saturation 88.0 09/24/25 09:10 ABG Base Excess 3.6 mmol/L (-2.0-2.0) H 09/24/25 09:10 Ken Test Pos 09/24/25 09:10 A-a O2 Gradient 6.7 mmHg (5-10) 09/24/25 09:10 Hematocrit 36.9 % (42-52) L 09/24/25 09:10 Hgb O2 Saturation 82.1 % (95-100) L 09/24/25 09:10 Carboxyhemoglobin 5.9 %THgb (0.4-20.1) 09/24/25 09:10 Methemoglobin 0.8 % (0.4-1.5) 09/24/25 09:10 Total Hemoglobin 12.0 g/dL (14-18) L 09/24/25 09:10 Sodium 139.0 mmol/L (131-143) 09/24/25 09:10 Potassium 3.6 mmol/L (3.5-5.0) 09/24/25 09:10 Glucose 103.0 mg/dL (70-115) 09/24/25 09:10 Ionized Calcium 1.2 mmol/L (1.1-1.4) 09/24/25 09:10 O2 Delivery Device Room air 09/24/25 09:10 FiO2 21.0 % 09/24/25 09:10 Director Decision Support ID Broma 09/24/25 09:10 Sodium 141 mmol/L (136-145) 09/24/25 09:05 Potassium 3.7 mmol/L (3.5-5.1) 09/24/25 09:05 Chloride 103 mmol/L (98-107) 09/24/25 09:05 Carbon Dioxide 30 mmol/L (22-29) H 09/24/25 09:05 Anion Gap 11.7 (5-19) 09/24/25 09:05 BUN 15 mg/dL (8-23) 09/24/25 09:05 Creatinine 0.5 mg/dL (0.7-1.2) L 09/24/25 09:05 GFR Calculation 164.4 mL/min (90-130) H 09/24/25 09:05 Glucose 104 mg/dL (65-115) 09/24/25 09:05 Calculated Osmolality 293 mOsm/kg (285-295) 09/24/25 09:05 Calcium 8.8 mg/dL (8.5-10.5) 09/24/25 09:05 Total Bilirubin 0.8 mg/dL (0.15-1.2) 09/24/25 09:05 AST 31 U/L (0-40) 09/24/25 09:05 ALT 20 U/L (0-41) 09/24/25 09:05 Alkaline Phosphatase 98 U/L (40-130) 09/24/25 09:05 Total Protein 6.1 g/dL (6.6-8.7) L 09/24/25 09:05 Albumin 4.1 g/dL (3.5-5.2) 09/24/25 09:05 Globulin 2.0 g/dL (1.3-4.6) 09/24/25 09:05 All radiology interpretation(s) finalized by discharge Discharge Plan Discharge Patient Disposition: Home Clinical Impression: Postlaminectomy syndrome of lumbar region Condition: Stable Prescriptions: New prednisone 20 mg tablet 20 mg PO TID Qty: 15 0RF Rx Instructions: 1 p.o. 3 times daily x3 days, 1 p.o. twice daily x2 days, 1 p.o. daily x2 days oxycodone-acetaminophen 5-325 mg tablet 1 tab PO Q6H PRN (Reason: pain) Qty: 12 0RF baclofen 5 mg tablet 5 mg PO Q8H Qty: 14 0RF Discontinued hydrocodone-acetaminophen 5-325 mg tablet 1 - 2 tab PO .Q4-6H Qty: 40 0RF No Action aspirin [Adult Aspirin Regimen] 81 mg tablet,delayed release (DR/EC) 81 mg PO BEDTIME carvedilol 3.125 mg tablet 3.125 mg PO BEDTIME rosuvastatin 5 mg tablet 5 mg PO BEDTIME Discharge Orders: Discharge ED (Routine); Ordered 09/24/25 Ordered By: George De La Vega Other Ambulatory Orders: DME: Oxygen (Order) Location: None Selected Ordered By: George De La Vega Referrals: Rhett Cuevas MD [Primary Care Provider, Family Practice] Discharge Diet: Usual diet Discharge Activity: Limit activity as instructed Patient Instructions: Opioid Safety, Pain Management, Patient Portal & Radha Instructions Activity Restrictions/Additional Instructions: [facility]. It is very important that you follow up as instructed or that you return to the Emergency Department should you have concerns or if your condition changes or worsens in any way. Emergency department visits are focused on emergent conditions, in some cases you may require further evaluation on an outpatient basis. You were seen for complaints of persistent back pain post laminectomy. Your history and exam are not suggestive of any nerve compression at this time. Your white count is normal and there is no sign of infection at this time. Recommend starting a steroid taper and we increased your pain medications follow-up with Dr. Montenegro as previously scheduled. Continue your current postop instructions as per Dr. Montenegro at the time of discharge from your surgery. While you are in the emergency room you are noted to be mildly hypoxic sepsis likely chronic based on your lab work. This is due to COPD and your history of lung cancer. Recommend that you start oxygen 2 L/min daily and follow-up with your primary care doctor within the week. (Please note that included in your discharge packet is information concerning opioid safety and pain management. This information is given to all patients were discharged from the ER regardless of their discharge diagnosis or the medicines they usually take or are prescribed.) Print Language: Belgian Coding Level of Care Code ED [employer] Professor for Ruben Gavin
--- NOTE | 2025-09-24 08:52 | XR_ITS ---
WS: [id number] Exam: XR chest 1V portable [id number] Date/Time of Exam: 09/24/2025 9:00 AM Reason For Exam: dyspnea/cough Comparison 06/05/2025. Moderate size RIGHT basal pleural effusion noted with compressive atelectasis of the middle and lower lobes of the RIGHT lung. The LEFT lung is generally clear. Heart size is normal. The mediastinum is normal in contour. A RIGHT subclavian port ends in the lower one third of the SVC. Bony structures are intact. Hardware noted in the C-spine. XR/XR chest 1V portable [id number] IMPRESSION: 1. Moderate sized RIGHT basal pleural effusion with compressive atelectasis of the middle and lower lobes of the RIGHT lung.
[2025-09-24 09:15] LABS: Hematocrit 33.7 % (37-53); Hemoglobin 11.40 g/dL (11.27-16.99); Mean Corpuscular HGB Conc 33.8 g/dL (30-55); Mean Corpuscular Hemoglobin 37.9 pg (27-33); Mean Corpuscular Volume 112.0 fl (82-101); Nucleated Red Blood Cells % 0 %; Platelet Count 116 10^3/cmm (157-399); Red Blood Count 3.01 10^6/uL (3.85-5.65); White Blood Count 7.23 10^3/uL (3.29-11.43)
[2025-09-24 09:24] LABS: ABG PCO2 41.0 mmHg (35-45); ABG PH Result 7.44 (7.35-7.45); Alveolar-Arterial Oxygen Gradi 6.7 mmHg (5-10); Arterial Blood Gas Hematocrit 36.9 % (42-52); Blood Gas Allen Test Pos; Blood Gas Operator Identificat BROMA; Blood Gas Sample Site Radial, right; Blood Gas Sample Type Arterial; Carboxyhemoglobin 5.9 %THgb (0.4-20.1); Glucose Level-ABG 103.0 mg/dL (70-115); HCO3 ABG 28.0 mmol/L (22-26); Ionized Calcium Level - ABG 1.2 mmol/L (1.1-1.4); Methemoglobin 0.8 % (0.4-1.5); Oxygen Saturation ABG 88.0; PO2 ABG 49.6 mmHg (80.0-100.0); PO2 FiO2 Ratio Arterial Blood 236; Potassium Level - ABG 3.6 mmol/L (3.5-5.0); Sodium Level - ABG 139.0 mmol/L (131-143)
[2025-09-24] MEDS: orphenadrine 30 mg/mL Inj 2 mL 60 MG IVP (09:27)
[2025-09-24 09:34] LABS: Alanine Aminotransferase 20 U/L (0-41); Albumin Level 4.1 g/dL (3.5-5.2); Alkaline Phosphatase 98 U/L (40-130); Anion Gap 11.7 (5-19); Aspartate Amino Transferase 31 U/L (0-40); Blood Urea Nitrogen 15 mg/dL (8-23); Calcium 8.8 mg/dL (8.5-10.5); Carbon Dioxide 30 mmol/L (22-29); Chloride 103 mmol/L (98-107); Globulin 2.0 g/dL (1.3-4.6); Glucose 104 mg/dL (65-115); Osmolality Calculated 293 mOsm/kg (285-295); Potassium 3.7 mmol/L (3.5-5.1); Sodium 141 mmol/L (136-145); Total Protein 6.1 g/dL (6.6-8.7)
[2025-09-24 10:19] VITALS: O2SAT 88; O2SAT 96
[2025-09-24 10:33] VITALS: BP 130/64; PULSE 67; RESP 16; O2SAT 96
[2025-09-24 10:59] VITALS: BP 110/66; PULSE 76; RESP 16; O2SAT 97
== END 2025-09-24 11:08 | disposition home or self-care (01) ==
PROVIDERS: Emergency Provider Family Medicine; PCP Family Medicine
DX: M96.1 Postlaminectomy syndrome, not elsewhere classified (principal); Z79.82 Long term (current) use of aspirin; F17.210 Nicotine dependence, cigarettes, uncomplicated; E78.5 Hyperlipidemia, unspecified; I10 Essential (primary) hypertension; Z85.118 Personal history of other malignant neoplasm of bronchus and lung
CPT/HCPCS: 36415; 36600; 71045; 80051; 80053; 82330; 82805; 85025; 94760; 96361; 96374; 96375; 99284; J1100; J1885; J2360; J7030

== ENCOUNTER 2025-10-05 08:34 | Oncology outpatient (recurring) (ONCR) | payer MEDICARE, BC, SELFPAY ==
[2025-10-05 09:03] LABS: Hematocrit 37.9 % (37-53); Hemoglobin 13.00 g/dL (11.27-16.99); Mean Corpuscular HGB Conc 34.3 g/dL (30-55); Mean Corpuscular Hemoglobin 38.3 pg (27-33); Mean Corpuscular Volume 111.8 fl (82-101); Nucleated Red Blood Cells % 0 %; Platelet Count 165 10^3/cmm (157-399); Red Blood Count 3.39 10^6/uL (3.85-5.65); White Blood Count 9.71 10^3/uL (3.29-11.43)
[2025-10-05 09:27] LABS: Alanine Aminotransferase 14 U/L (0-41); Albumin Level 4.1 g/dL (3.5-5.2); Alkaline Phosphatase 103 U/L (40-130); Anion Gap 12.9 (5-19); Aspartate Amino Transferase 17 U/L (0-40); Blood Urea Nitrogen 10 mg/dL (8-23); Calcium 8.8 mg/dL (8.5-10.5); Carbon Dioxide 28 mmol/L (22-29); Chloride 102 mmol/L (98-107); Globulin 2.1 g/dL (1.3-4.6); Glucose 94 mg/dL (65-115); Osmolality Calculated 287 mOsm/kg (285-295); Potassium 3.9 mmol/L (3.5-5.1); Sodium 139 mmol/L (136-145); Thyroid Stimulating Hormone 0.42 uIU/mL (0.27-4.20); Total Protein 6.2 g/dL (6.6-8.7)
[2025-10-05] MEDS: durvalumab 1,500 MG in sodium chloride 0.9% 250 ML 280 MG IV (10:27)
[2025-10-05 11:39] VITALS: BP 145/76; PULSE 65; RESP 16; TEMP 36.3; O2SAT 97
== END 2025-10-05 23:59 | disposition home or self-care (01) ==
PROVIDERS: Nurse Practitioner Family; PCP Family Medicine; Visit Provider Internal Medicine Medical Oncology
DX: Z51.12 Encounter for antineoplastic immunotherapy (principal); C34.2 Malignant neoplasm of middle lobe, bronchus or lung; I25.10 Atherosclerotic heart disease of native coronary artery without angina pectoris; E87.5 Hyperkalemia; I10 Essential (primary) hypertension; F17.210 Nicotine dependence, cigarettes, uncomplicated; M89.8X8 Other specified disorders of bone, other site; Z79.899 Other long term (current) drug therapy; Z90.2 Acquired absence of lung [part of]; Z85.118 Personal history of other malignant neoplasm of bronchus and lung; Z95.828 Presence of other vascular implants and grafts; Z71.6 Tobacco abuse counseling
CPT/HCPCS: 80053; 84443; 85025; 96413; 99214; A4222; J7050; J9173

== ENCOUNTER → 2025-10-06 13:25 | Outpatient (BNVA) | payer MEDICARE, BC, SELFPAY | PROVIDERS: PCP Family Medicine; Visit Provider Orthopaedic Surgery | DX: Z98.890 Other specified postprocedural states (principal) | CPT/HCPCS: 99024 ==

== ENCOUNTER → 2025-10-13 14:21 | Outpatient (BNVA) | payer MEDICARE, BC, SELFPAY | PROVIDERS: PCP Family Medicine; Visit Provider Nurse Practitioner Family | DX: T14.8XXA Other injury of unspecified body region, initial encounter (principal); X58.XXXA Exposure to other specified factors, initial encounter | CPT/HCPCS: 87070; 87075; 87205 ==